=== PATIENT | male | born 1975 | race African-American/Black ===

== ENCOUNTER 2016-08-01 22:03 | Emergency (ER) | payer MEDICAID ==
[2016-08-02] MEDS ORDERED: NORMAL SALINE 1000 ML 1,000 ML IV ONE (00:03)
[2016-08-02] MEDS ORDERED: ONDANSETRON HCL INJ/PF 4 MG/2 ML SDV IV ONE (00:03)
[2016-08-02] MEDS ORDERED: ONDANSETRON ODT 4 MG TAB (6 TAB/DSPK) PO PRN (00:47)
--- NOTE | 2016-08-02 00:47 | ER Document Report ---
ED General - General Chief Complaint: Nausea/Vomiting/Diarrhea Stated Complaint: NAUSEA,VOMITING,DIARRHEA Cannot obtain history due to: Mentally challenged Notes: Patient is a 41-year-old male coming from a [facility] with concerns of several episodes of vomiting and diarrhea. Patient is nonverbal. He has not received anything to treat his symptoms prior to arrival. Apparently no prior history of similar symptoms in the past. No known sick contacts. History is otherwise limited secondary to patient's nonverbal status. TRAVEL OUTSIDE OF THE [place] IN LAST 30 DAYS: No - Related Data Allergies/Adverse Reactions: No Known Allergies Allergy (Verified 04/21/16 15:17) Past Medical History - General Information source: Legal Guardian Cannot obtain history due to: Mentally challenged - Social History Smoking Status: Never Smoker Frequency of alcohol use: None Drug Abuse: None Lives with: Other - care home Family History: Reviewed & Not Pertinent, Other - unable to obtain Patient has suicidal ideation: No Patient has homicidal ideation: No - Past Medical History Cardiac Medical History: Denies: Hx Coronary Artery Disease, Hx Heart Attack, Hx Hypertension Pulmonary Medical History: Denies: Hx Asthma, Hx Bronchitis, Hx COPD, Hx Pneumonia Neurological Medical History: Reports: Hx Seizures - EPLIEPSY. Denies: Hx Cerebrovascular Accident Renal/ Medical History: Denies: Hx Peritoneal Dialysis GI Medical History: Reports: Hx Endoscopy - g tube Musculoskeltal Medical History: Denies Hx Arthritis Past Surgical History: Reports: Hx Abdominal Surgery - Immunizations Immunizations up to date: Yes Hx Diphtheria, Pertussis, Tetanus Vaccination: Yes Review of Systems - Review of Systems -: Yes ROS unobtainable due to patient's medical condition Physical Exam - Vital signs Vitals: Temp Pulse Resp BP Pulse Ox 97.8 F 118 H 19 123/82 98 08/01/16 23:02 08/01/16 23:02 08/01/16 23:02 08/01/16 23:02 08/01/16 23:02 Interpretation: Tachycardic Notes: PHYSICAL EXAMINATION: GENERAL: Patient is laying in the position in no distress HEAD: Atraumatic, normocephalic. EYES: Pupils equal round and reactive to light, extraocular movements intact, sclera anicteric, conjunctiva are normal. ENT: nares patent, oropharynx clear without exudates. Moist mucous membranes. NECK: Normal range of motion, supple without lymphadenopathy LUNGS: Breath sounds clear to auscultation bilaterally and equal. No wheezes rales or rhonchi. HEART: Regular rate and rhythm without murmurs ABDOMEN: Soft, nontender, normoactive bowel sounds. No guarding, no rebound. No masses appreciated. EXTREMITIES: no pitting or edema. No cyanosis. NEUROLOGICAL: No focal neurological deficits. Moves all extremities spontaneously. PSYCH: Nonverbal SKIN: Warm, Dry, normal turgor, no rashes or lesions noted. Course - Re-evaluation Re-evalutation: 08/02/16 00:44 Patient presents with vomiting and diarrhea that have since resolved. He has no focal abdominal tenderness on exam although he is nonverbal. Vitals at the time my assessment are within normal limits without tachycardia or hypotension. His vomiting has resolved after administration of Zofran. Presentation is overall most consistent likely viral gastroenteritis. KUB completed as patient has a history of bowel obstructions in the past without evidence of this pathology. Patient has tolerated a sterile water 100 mL challenge through his G -tube without additional episodes of vomiting. Based on clinical history, vitals and exam I do not believe laboratories or imaging studies are indicated at this time. At this time will discharge with return precautions and follow- up recommendations. Verbal discharge instructions given a the bedside and opportunity for questions given. Medication warnings reviewed. Care provider is in agreement with this plan and has verbalized understanding of return precautions and the need for primary care follow-up in the next 24-72 hours. - Vital Signs Vital signs: Temp Pulse Resp BP Pulse Ox 99.4 F 98 20 121/83 96 08/02/16 00:52 08/02/16 00:52 08/02/16 00:52 08/02/16 00:52 08/02/16 00:52 Discharge - Discharge Clinical Impression: Vomiting and diarrhea Condition: Good Disposition: HOME, SELF-CARE Additional Instructions: Your symptoms are likely due to a viral illness and should resolve in the next several days. You can take mvey-ysi-rdtlmen loperamide also known as Imodium as needed for diarrhea per box instructions. Continue to stay hydrated with plenty of solution such as Gatorade or Pedialyte. You are being prescribed Zofran to take as needed for nausea and vomiting. Please return if you develop severe abdominal pain, pass out, become unable to tolerate any oral fluids for 12 more hours, or any other symptoms that are concerning to you. Referrals: CORINA CORDON MD [Primary Care Provider] - Follow up as needed
[2016-08-02 03:16] VITALS: BP 117/69
== END 2016-08-02 03:20 | disposition home or self-care (01) ==
LOC: ER 22:03
DX: R11.2 Nausea with vomiting, unspecified (principal); R19.7 Diarrhea, unspecified; Z87.19 Personal history of other diseases of the digestive system; Z93.1 Gastrostomy status
CPT/HCPCS: 74000; 99284

== ENCOUNTER 2016-09-18 16:40 | Emergency (ER) | payer MEDICAID ==
[2016-09-18] MEDS ORDERED: CEFTRIAXONE INJ 1000 MG VIAL IM ONE (19:00)
[2016-09-18] MEDS ORDERED: LIDOCAINE 1% INJ (10 MG/ML) 10 ML MDV INJ ONE (19:01)
--- NOTE | 2016-09-18 19:01 | ER Document Report ---
ED Respiratory Problem - General Mode of Arrival: Ambulatory Information source: Patient TRAVEL OUTSIDE OF THE [place] IN LAST 30 DAYS: No - HPI Patient complains to provider of: Cough Similar symptoms previously: Yes Recently seen / treated by doctor: Yes - General Chief Complaint: Breathing Difficulty Stated Complaint: PHYSICIAN REFERRED/RESPIRATORY ISSUE Time Seen by Provider: 09/18/16 18:53 Notes: Patient is a 85-year-old male with mental retardation and epilepsy that presents to the emergency department today with complaints of "possible pneumonia". Patient came with outpatient x-ray report along with outpatient labs in hand. Patient was seen in an urgent care and diagnosed with "possible pneumonia". Patient was sent here according to caregivers because of "possible dehydration" however on labs patient does not appear to be dehydrated. (EYAL TEE) - Related Data Allergies/Adverse Reactions: No Known Allergies Allergy (Verified 09/18/16 16:55) Past Medical History - General Information source: Outside Facility Records - health care law specialist - Social History Smoking Status: Never Smoker Cigarette use (# per day): No Frequency of alcohol use: None Drug Abuse: None Lives with: Family Family History: Reviewed & Not Pertinent, Other - unable to obtain Patient has suicidal ideation: No Patient has homicidal ideation: No Neurological Medical History: Reports: Hx Seizures - EPLIEPSY GI Medical History: Reports: Hx Endoscopy - g tube Past Surgical History: Reports: Hx Abdominal Surgery - Immunizations Immunizations up to date: Yes Hx Diphtheria, Pertussis, Tetanus Vaccination: Yes Review of Systems - Review of Systems Constitutional: See HPI, Fever - subjective EENT: No symptoms reported Cardiovascular: No symptoms reported Respiratory: See HPI, Cough Gastrointestinal: No symptoms reported Genitourinary: No symptoms reported Male Genitourinary: No symptoms reported Musculoskeletal: No symptoms reported Skin: No symptoms reported Hematologic/Lymphatic: No symptoms reported Neurological/Psychological: No symptoms reported -: Yes All other systems reviewed and negative - Review of Systems Notes: given by caregiver at bedside (EYAL TEE) Physical Exam - Vital signs Vitals: Temp Pulse Resp BP Pulse Ox 97.9 F 99 20 143/82 H 98 09/18/16 16:57 09/18/16 16:57 09/18/16 16:57 09/18/16 16:57 09/18/16 16:57 - Notes Notes: Physical Exam: General: Alert, wearing helmet which is normal for the patient, in wheelchair, interacts appropriately for mental baseline. HEENT: Normocephalic. Atraumatic. PERRL. Extraocular movements intact. Oropharynx clear. Wearing helmet. Neck: Supple. Respiratory: No respiratory distress. Clear and equal breath sounds bilaterally. 99% oxygen saturation on room air. Abdominal: Normal Inspection. No distension. Extremities: Moves all four extremities. Neurological: Cognition and speech as baseline according to caregivers. Psychological: Unable to assess secondary to MR Skin: Warm. Dry. Normal color. (EYAL TEE) Course - Re-evaluation Re-evalutation: 09/18/16 19:04 Patient presents to the emergency department by caregiver. She states he has been coughing recently may have had a fever earlier this morning was sent to the urgent care. We have complete records from the urgent care where they saw him around 1:00 this afternoon. X-ray showed a questionable right upper lobe pneumonia. Blood work showing a white blood cell count of 11.5 with an H&H that were stable. On ED arrival he is awake alert no respiratory distress with a pulse ox of 98% on room air afebrile at 97 9 normotensive. He is at his baseline mental status no nuchal rigidity no altered mental status according to caregiver who sees him on a daily basis he is interactive smiling and actually talked with me a couple times. His lungs are clear no difficulty breathing abdomen is soft PEG tube is in place no lower extremity edema calf tenderness or swelling. At this time the patient had laboratory evaluation just at 1:00 his vital signs are stable questionable pneumonia going him a shot of Rocephin him on Augmentin for primary care physician in 2-3 days no emergent need for anything additional at this point unless something changes does not require inpatient either. And discussed reasons for ED return sooner (CLAUDIA BERRY) - Vital Signs Vital signs: Temp Pulse Resp BP Pulse Ox 97.9 F 89 18 131/96 H 98 09/18/16 16:57 09/18/16 19:31 09/18/16 19:31 09/18/16 19:31 09/18/16 19:31 Discharge - Discharge Clinical Impression: Pneumonia Condition: Stable Disposition: HOME, SELF-CARE Additional Instructions: Pneumonia Your examination indicates that you have pneumonia. This is an infection of the lung tissue, usually caused by bacteria or a virus. Symptoms include cough, fever, shaking chills, chest pain, shortness of breath, and coughing up bloody sputum. Treatment for bacterial pneumonia includes rest, antibiotics for 10 to 14 days, increasing your clear liquid intake, a cool mist humidifier at your bedside, and fever medication. Often, a repeat chest X-ray is performed in a few weeks--even if you feel better--to ascertain whether the infection has completely resolved and no underlying lung problem is present. You should call the physician if you develop persistent vomiting, high fever that does not respond to fever medication, increasing shortness of breath , confusion, or lethargy. Also, failure to improve within two to three days is an indication for re-examination. Follow-up with your primary care physician on Wednesday return for increasing worsening or new symptoms or any additional concerns Prescriptions: Amox Tr/Potassium Clavulanate [Augmentin 875-125 Tablet] 1 tab PO BID 10 Days Referrals: OMA BAUTISTA PA-C [Primary Care Provider] - Follow up as needed Meenaibe Attestation: 09/18/16 19:13 I personally performed the services described in the documentation, reviewed and edited the documentation which was dictated to my scribe in my presence, and it accurately records my words and actions. (CLAUDIA BERRY) Scribe Documentation - Scribe Written by Jacky:: Jacky Fenton, 09/18/16 [id number] acting as scribe for :: Alberto
[2016-09-18] MEDS ORDERED: LIDOCAINE 1% INJ-PF (10 MG/ML) 30 ML SDV ONE (19:12)
[2016-09-18 20:03] VITALS: BP 131/96
== END 2016-09-18 19:31 | disposition home or self-care (01) ==
LOC: ER 16:40
DX: J18.1 Lobar pneumonia, unspecified organism (principal); R06.00 Dyspnea, unspecified; G40.909 Epilepsy, unspecified, not intractable, without status epilepticus; F79 Unspecified intellectual disabilities; Z93.1 Gastrostomy status
CPT/HCPCS: 99284; 96372; J0696

== ENCOUNTER → 2016-09-18 | Outpatient (CLI) | payer MEDICAID ==
[2016-09-18 14:49] LABS: ABSOLUTE LYMPHOCYTES (AUTO) 1.1 10^3/uL (0.5-4.7); ABSOLUTE MONOCYTES (AUTO) 0.6 10^3/uL (0.1-1.4); ABSOLUTE NEUT (AUTO) 9.8 10^3/uL (1.7-8.2); BASOPHILS % (AUTO) 0.2 % (0-2); HEMATOCRIT 39.5 % (37.9-51.0); HEMOGLOBIN 13.5 g/dL (13.5-17.0); LYMPHOCYTES % (AUTO) 9.5 % (13-45); MEAN CORPUSCULAR HEMOGLOBIN 28.3 pg (27.0-33.4); MEAN CORPUSCULAR HGB CONC 34.2 g/dL (32.0-36.0); MEAN CORPUSCULAR VOLUME 83 fl (80-97); MONOCYTES % (AUTO) 5.3 % (3-13); RED BLOOD COUNT 4.76 10^6/uL (4.35-5.55); RED CELL DISTRIBUTION WIDTH 14.6 % (11.5-14.0); WHITE BLOOD COUNT 11.5 10^3/uL (4.0-10.5)
[2016-09-18 15:20] LABS: ANION GAP 12 (5-19); BLOOD UREA NITROGEN 12 mg/dL (7-20); CALCIUM 9.4 mg/dL (8.4-10.2); CARBON DIOXIDE 28 mmol/L (22-30); CHLORIDE 103 mmol/L (98-107); GLUCOSE 99 mg/dL (75-110); SODIUM 143.3 mmol/L (137-145)
== END ==
LOC: OD 13:05
PROVIDERS: ATTEND Emergency Medicine
DX: R50.9 Fever, unspecified (principal); F72 Severe intellectual disabilities; F84.0 Autistic disorder; G40.909 Epilepsy, unspecified, not intractable, without status epilepticus
CPT/HCPCS: 36415; 71020; 80048; 85025

== ENCOUNTER 2017-06-25 12:21 | Emergency (ER) | payer MEDICAID ==
[2017-06-25] MEDS ORDERED: LEVETIRACETAM 1500 MG/NACL-ISO 1,500 MG/100 ML RTUPB IV ONE (12:49)
--- NOTE | 2017-06-25 12:51 | ER Document Report ---
ED General - General Stated Complaint: POSSIBLE SEIZURE Time Seen by Provider: 06/25/17 12:24 Mode of Arrival: Ambulatory Information source: Patient TRAVEL OUTSIDE OF THE [place] IN LAST 30 DAYS: No - HPI Notes: 41-year-old male with a history of epilepsy, MR and g tube presents via EMS for complaints of multiple seizures in a cluster that started this morning as well as vomiting after receiving his medication through his G-tube today patient has not had a seizure in the emergency room, no Diastat was given. Patient does take Keppra and Lamictal through his G-tube. home health aid states she gave the medications this morning and patient vomited up the medication. No change in his recent seizure medications. Patient's seizure medications are managed by [facility]. No new trauma. No change in medicine, food or travel. Denies fevers, chills, chest pain,palpitations, shortness of breath, dyspnea, nausea, vomiting, diarrhea, abdominal pain, hematuria,blurred vision, double vision, loss of vision, speech changes, LH, dizziness, syncope, headaches, wheezing, ST, URI, neck pain, weakness, bowel or bladder dysfunction, saddle anesthesia, numbness or tingling in bilateral upper or lower extremities equally, muscle paralysis, weakness in bilateral upper or lower extremities equally or rash. Denies IV drug use. - Related Data Allergies/Adverse Reactions: No Known Allergies Allergy (Verified 09/18/16 16:55) Past Medical History - General Information source: Legal Guardian, COUNT [facility]CLUDES [facility] Records, Outside Facility Records Cannot obtain history due to: Mentally challenged - Social History Smoking Status: Never Smoker Family History: Reviewed & Not Pertinent, Other - unable to obtain - Past Medical History Cardiac Medical History: Denies: Hx Coronary Artery Disease, Hx Heart Attack, Hx Hypertension Pulmonary Medical History: Denies: Hx Asthma, Hx Bronchitis, Hx COPD, Hx Pneumonia Neurological Medical History: Reports: Hx Seizures - EPLIEPSY. Denies: Hx Cerebrovascular Accident Renal/ Medical History: Denies: Hx Peritoneal Dialysis GI Medical History: Reports: Hx Endoscopy - g tube Musculoskeltal Medical History: Denies Hx Arthritis Past Surgical History: Reports: Hx Abdominal Surgery - Immunizations Immunizations up to date: Yes Hx Diphtheria, Pertussis, Tetanus Vaccination: Yes Review of Systems - Review of Systems Constitutional: No symptoms reported EENT: No symptoms reported Cardiovascular: No symptoms reported Respiratory: No symptoms reported Gastrointestinal: No symptoms reported Genitourinary: See HPI Male Genitourinary: No symptoms reported Musculoskeletal: No symptoms reported Skin: No symptoms reported Hematologic/Lymphatic: No symptoms reported Neurological/Psychological: See HPI Physical Exam - Vital signs Vitals: Resp 17 06/25/17 12:29 - Notes Notes: PHYSICAL EXAMINATION: GENERAL: Well-appearing, well-nourished and in no acute distress. HEAD: Atraumatic, normocephalic. EYES: Pupils equal round and reactive to light, extraocular movements intact, sclera anicteric, conjunctiva are normal. ENT: Nares patent, oropharynx clear without exudates. Moist mucous membranes. NECK: Normal range of motion, supple without lymphadenopathy LUNGS: Breath sounds clear to auscultation bilaterally and equal. No wheezes rales or rhonchi. HEART: Regular rate and rhythm without murmurs ABDOMEN: Soft, nontender, nondistended abdomen. No guarding, no rebound. No masses appreciated. Musculoskeletal: Normal range of motion, no pitting or edema. No cyanosis. NEUROLOGICAL: alert, no slurred speech, does not have spontaneous meaningful speech on his own, no facial droop, cranial nerves II through XII grossly intact , biceps and patellar DTRs +2 bilaterally. PERRLA, PSYCH: Normal mood, normal affect. SKIN: Warm, Dry, normal turgor, no rashes or lesions noted. Course - Re-evaluation Re-evalutation: 06/25/17 15:57 Discussed the results of the labs/radiology as well as the diagnosis at great length. Pediatric enzymes negative. CBC unremarkable, CMP unremarkable. patient's urine tox shows that he is positive for benzodiazepines which matches his medications that he takes. Urinalysis showed ketones, patient given 1 L of IV fluids. Keppra level is a send out. pt loaded with 1500 of Keppra IV. Up with neurologist within 3 days as well as primary care provider. If symptoms become worse return to the emergency room as soon as possible. Breath level was a send out, unable to obtain today. Advised to maintain same doses of seizure medications. Pt has not vomited or had any seizures since he came to the emergency room at 1230 which was approximately 2 and half hours ago. Discussed the need to return to the ER for any new or worsening sx. All questions answered. caregiver comfortable with the decision to go home. After performing a Medical Screening Examination, I estimate there is LOW risk for ACUTE APPENDICITIS, BOWEL OBSTRUCTION, ACUTE CHOLECYSTITIS, PERFORATED DIVERTICULITIS, INCARCERATED HERNIA, PANCREATITIS, TESTICULAR TORSION or PERFORATED ULCER, thus I consider the discharge disposition reasonable. Also, there is no evidence or peritonitis, sepsis, or toxicity. I have reevaluated this patient multiple times and no significant life threatening changes are noted. The patient and I have discussed the diagnosis and risks, and we agree with discharging home with close follow-up with the understanding that symptoms and presentations can change. We also discussed returning to the Emergency Department immediately if new or worsening symptoms occur. We have discussed the symptoms which are most concerning (e.g., bloody stool, fever, changing or worsening pain, intractable vomiting - standard verbal up date) that necessitate immediate return. - Vital Signs Vital signs: Temp Pulse Resp BP Pulse Ox 99.2 F 18 129/90 H 94 06/25/17 13:14 06/25/17 13:01 06/25/17 13:00 06/25/17 13:01 - Laboratory Result Diagrams: 06/25/17 12:45 06/25/17 12:45 Laboratory results interpreted by me: 06/25/17 06/25/17 12:45 13:30 RDW 14.3 H Seg Neutrophils % 83.0 H Lymphocytes % 6.7 L Urine Ketones TRACE H - EKG Interpretation by Me Rate: Tachycardia Rhythm: NSR When compared to previous EKG there are: No significant change Discharge - Discharge Clinical Impression: Seizures Condition: Good Disposition: HOME, SELF-CARE Instructions: Seizure, Known Epileptic ([facility]) Additional Instructions: Seizure You have had a seizure. Seizure disorders (epilepsy) of one sort or another affect about one out of 50 people. The seizure occurs because of abnormal electrical activity in the brain. Seizures may be due to drugs and alcohol, strokes, brain injury, or infection. In the most common form of epilepsy, no cause can be found. You will require further evaluation to determine the cause of your seizure, and to determine whether anti-seizure medication is required. This follow-up testing is important, so please call us if you encounter problems with scheduling of tests or appointments. YOU SHOULD NOT DRIVE until released to do so by your physician. The law requires that seizures be reported to the local company hazmat driver's license bureau--a seizure while driving could be catastrophic. Call the doctor if seizures recur, or if you develop new symptoms such as fever, severe headache, stiff neck, confusion or increasing sleepiness, weakness or numbness, or visual problems. Referrals: OMA BAUTISTA PA-C [Primary Care Provider] - Follow up in 3-5 days SYDNIE LEMUS MD [NO LOCAL MD] - Follow up in 3-5 days
[2017-06-25 13:14] VITALS: BP 129/90
--- NOTE | 2017-06-25 13:24 | EKG REPORT ---
SEVERITY:- ABNORMAL ECG - SINUS TACHYCARDIA BORDERLINE INFERIOR Q WAVES BORDERLINE T ABNORMALITIES, INFERIOR LEADS EARLY PRECORDIAL TRANSITION, LEAD PLACEMENT, VS OLD TRUE POST [place] : Confirmed by: Aubrey York MD 25-Jun-2017 13:24:24
[2017-06-25 13:27] LABS: ABSOLUTE LYMPHOCYTES (AUTO) 0.5 10^3/uL (0.5-4.7); ABSOLUTE MONOCYTES (AUTO) 0.7 10^3/uL (0.1-1.4); BASOPHILS % (AUTO) 0.1 % (0-2); EOSINOPHILS % (AUTO) 0.4 % (0-6); HEMATOCRIT 42.2 % (37.9-51.0); HEMOGLOBIN 14.7 g/dL (13.5-17.0); LYMPHOCYTES % (AUTO) 6.7 % (13-45); MEAN CORPUSCULAR HGB CONC 34.8 g/dL (32.0-36.0); MEAN CORPUSCULAR VOLUME 83 fl (80-97); MONOCYTES % (AUTO) 9.8 % (3-13); PLATELET COUNT 192 10^3/uL (150-450); RED BLOOD COUNT 5.07 10^6/uL (4.35-5.55); RED CELL DISTRIBUTION WIDTH 14.3 % (11.5-14.0); TOTAL CELLS COUNTED % (AUTO) 100 %; WHITE BLOOD COUNT 7.3 10^3/uL (4.0-10.5)
[2017-06-25 13:44] LABS: A TYPE INFLUENZA AG NEGATIVE (NEGATIVE); B INFLUENZA AG NEGATIVE (NEGATIVE)
[2017-06-25 13:48] LABS: ALANINE AMINOTRANSFERASE 31 U/L (21-72); ALBUMIN 4.6 g/dL (3.5-5.0); ALKALINE PHOSPHATASE 86 U/L (38-126); ANION GAP 14 (5-19); ASPARTATE AMINO TRANSFERASE 21 U/L (17-59); BILIRUBIN,DIRECT 0.2 mg/dL (0.0-0.4); BILIRUBIN,TOTAL 0.5 mg/dL (0.2-1.3); BLOOD UREA NITROGEN 19 mg/dL (7-20); CALCIUM 9.5 mg/dL (8.4-10.2); CARBON DIOXIDE 27 mmol/L (22-30); CHLORIDE 103 mmol/L (98-107); CREATINE KINASE 69 U/L (55-170); GLUCOSE 106 mg/dL (75-110); POTASSIUM 3.9 mmol/L (3.6-5.0); SODIUM 143.8 mmol/L (137-145); TOTAL PROTEIN 7.1 g/dL (6.3-8.2)
[2017-06-25 13:58] LABS: APPEARANCE,URINE CLEAR; BILIRUBIN,URINE NEGATIVE (NEGATIVE); COLOR,URINE YELLOW; GLUCOSE, URINE NEGATIVE (NEGATIVE); KETONES,URINE TRACE mg/dL (NEGATIVE); LEUKOCYTE ESTERASE,URINE NEGATIVE (NEGATIVE); NITRITE,URINE NEGATIVE (NEGATIVE); PROTEIN,URINE NEGATIVE (NEGATIVE); URINE SPECIFIC GRAVITY 1.026; UROBILINOGEN,URINE NEGATIVE mg/dL (<2.0)
[2017-06-25] MEDS ORDERED: NORMAL SALINE 1000 ML 1,000 ML IV PRN (14:47)
[2017-06-25 15:19] LABS: URINE AMPHETAMINES SCREEN NEGATIVE; URINE BARBITURATES SCREEN NEGATIVE; URINE BENZODIAZEPINES SCREEN UNCONFIRMED POSITIVE; URINE COCAINE SCREEN NEGATIVE; URINE MARIJUANA (THC) SCREEN NEGATIVE; URINE METHADONE SCREEN NEGATIVE; URINE PHENCYCLIDINE SCREEN NEGATIVE
== END 2017-06-25 17:30 | disposition home or self-care (01) ==
LOC: ER 12:21
DX: G40.909 Epilepsy, unspecified, not intractable, without status epilepticus (principal); F79 Unspecified intellectual disabilities; Z93.1 Gastrostomy status
CPT/HCPCS: 93005; 99284; 96361; 51701; 96374; 36415; 87086; 80177; 82550; 83605; 85025; 80053; 80175; 81001; 84484; 80307; 87804; 93010; J7030; J1953

== ENCOUNTER → 2018-03-10 | Outpatient (CLI) | payer MEDICAID ==
[2018-03-10 10:10] LABS: HEMATOCRIT 40.3 % (37.9-51.0); HEMOGLOBIN 13.7 g/dL (13.5-17.0); RED BLOOD COUNT 4.77 10^6/uL (4.35-5.55); WHITE BLOOD COUNT 4.3 10^3/uL (4.0-10.5)
[2018-03-10 10:11] LABS: ABSOLUTE LYMPHOCYTES (AUTO) 1.8 10^3/uL (0.5-4.7); ABSOLUTE MONOCYTES (AUTO) 0.3 10^3/uL (0.1-1.4); ABSOLUTE NEUT (AUTO) 2.2 10^3/uL (1.7-8.2); BASOPHILS % (AUTO) 0.6 % (0-2); EOSINOPHILS % (AUTO) 0.4 % (0-6); LYMPHOCYTES % (AUTO) 41.1 % (13-45); MEAN CORPUSCULAR HEMOGLOBIN 28.7 pg (27.0-33.4); MEAN CORPUSCULAR VOLUME 84 fl (80-97); MONOCYTES % (AUTO) 7.4 % (3-13); PLATELET COUNT 233 10^3/uL (150-450); RED CELL DISTRIBUTION WIDTH 14.2 % (11.5-14.0); SEGMENTED NEUTROPHILS % (AUTO) 50.5 % (42-78); TOTAL CELLS COUNTED % (AUTO) 100 %
[2018-03-10 10:19] LABS: ALANINE AMINOTRANSFERASE 18 U/L (21-72); ALBUMIN 4.4 g/dL (3.5-5.0); ALKALINE PHOSPHATASE 93 U/L (38-126); ANION GAP 9 (5-19); ASPARTATE AMINO TRANSFERASE 20 U/L (17-59); BILIRUBIN,DIRECT 0.2 mg/dL (0.0-0.4); BILIRUBIN,TOTAL 0.5 mg/dL (0.2-1.3); BLOOD UREA NITROGEN 12 mg/dL (7-20); CALCIUM 9.8 mg/dL (8.4-10.2); CARBON DIOXIDE 31 mmol/L (22-30); CHLORIDE 102 mmol/L (98-107); CHOLESTEROL 173.65 mg/dL (0-200); DIRECT LDL 93 mg/dL (<100); GLUCOSE 91 mg/dL (75-110); POTASSIUM 4.5 mmol/L (3.6-5.0); SODIUM 141.5 mmol/L (137-145); TOTAL PROTEIN 7.4 g/dL (6.3-8.2); TRIGLYCERIDES 108 mg/dL (<150)
[2018-03-10 10:24] LABS: FREE T4 (FREE THYROXINE) 0.61 ng/dL (0.78-2.19)
[2018-03-10 10:38] LABS: THYROID STIMULATING HORMONE 1.16 uIU/mL (0.47-4.68)
== END ==
LOC: OD 09:04
PROVIDERS: ATTEND Nurse Practitioner Psychiatric/Mental Health
DX: Z79.899 Other long term (current) drug therapy (principal); F63.81 Intermittent explosive disorder
CPT/HCPCS: 36415; 80053; 80061; 83036; 84439; 84443; 85025

== ENCOUNTER → 2018-06-07 | Outpatient (CLI) | payer MEDICAID ==
--- NOTE | 2018-06-07 10:02 | RADIOLOGY REPORT (SQ) ---
EXAM DESCRIPTION: CHEST PA/LATERAL COMPLETED DATE/TIME: 06/07/2018 9:35 am REASON FOR STUDY: MILD INTERMITTENT REACTIVE AIRWAY DISEASE COMPARISON: 01/26/2015 EXAM PARAMETERS: NUMBER OF VIEWS: two views TECHNIQUE: Digital Frontal and Lateral radiographic views of the chest acquired. RADIATION DOSE: NA LIMITATIONS: none FINDINGS: LUNGS AND PLEURA: No opacities, masses or pneumothorax. No pleural effusion. MEDIASTINUM AND HILAR STRUCTURES: No masses or contour abnormalities. HEART AND VASCULAR STRUCTURES: Heart normal size. No evidence for failure. BONES: No acute findings. HARDWARE: Unchanged catheter tubing overlying right neck and chest with tip overlying right atrium. Surgical clips overlie right upper quadrant. OTHER: No other significant finding. IMPRESSION: No evidence of acute cardiopulmonary process. TECHNICAL DOCUMENTATION: JOB ID: [id number] [employer]- All Rights Reserved Reading location - IP/workstation name: [email or web address]
== END ==
LOC: OD 09:20
PROVIDERS: ATTEND Physician Assistant
DX: J45.21 Mild intermittent asthma with (acute) exacerbation (principal)
CPT/HCPCS: 71046

== ENCOUNTER 2018-09-27 11:29 | Emergency (ER) | payer MEDICAID ==
[2018-09-27 11:39] VITALS: BP 130/83
--- NOTE | 2018-09-27 12:03 | ER Document Report ---
ED Medical Screen (RME) - General Chief Complaint: Skin Problem Stated Complaint: G TUBE ISSUES Time Seen by Provider: 09/27/18 11:55 Primary Care Provider: OMA BAUTISTA PA-C [Primary Care Provider] - Follow up as needed Mode of Arrival: Wheelchair Information source: Outside Facility Records - Caregiver present from outside facility Notes: 43-year-old male presented to ED for possible infection to the PEG tube site. He also has a distended abdomen with no bowel movement in several days. Caregiver states that it is been red and draining around the PEG tube site for several days has not had any fevers nausea or vomiting. He does have a history of autistic disorder,I/DD seizure disorder and Tuberous sclerosis. I have greeted and performed a rapid initial assessment of this patient. A comprehensive ED assessment and evaluation of the patient, analysis of test results and completion of medical decision making process will be conducted by an additional ED providers. Leydi TRAVEL OUTSIDE OF THE [place] IN LAST 30 DAYS: No - Related Data Allergies/Adverse Reactions: No Known Allergies Allergy (Verified 09/27/18 11:32) Past Medical History - Past Medical History Cardiac Medical History: Denies: Hx Coronary Artery Disease, Hx Heart Attack, Hx Hypertension Pulmonary Medical History: Denies: Hx Asthma, Hx Bronchitis, Hx COPD, Hx Pneumonia Neurological Medical History: Reports: Hx Seizures - EPLIEPSY. Denies: Hx Cerebrovascular Accident Renal/ Medical History: Denies: Hx Peritoneal Dialysis GI Medical History: Reports: Hx Endoscopy - g tube Musculoskeltal Medical History: Denies Hx Arthritis Past Surgical History: Reports: Hx Abdominal Surgery - Immunizations Immunizations up to date: Yes Hx Diphtheria, Pertussis, Tetanus Vaccination: Yes Physical Exam - Vital signs Vitals: Temp Pulse Resp BP Pulse Ox 97.6 F 86 18 130/83 H 98 09/27/18 11:39 09/27/18 11:39 09/27/18 11:39 09/27/18 11:39 09/27/18 11:39 Course - Vital Signs Vital signs: Temp Pulse Resp BP Pulse Ox 97.6 F 86 18 130/83 H 98 09/27/18 11:39 09/27/18 11:39 09/27/18 11:39 09/27/18 11:39 09/27/18 11:39 Doctor's Discharge - Discharge Referrals: OMA BAUTISTA PA-C [Primary Care Provider] - Follow up as needed
--- NOTE | 2018-09-27 12:44 | RADIOLOGY REPORT (SQ) ---
EXAM DESCRIPTION: ACUTE ABDOMEN SERIES COMPLETED DATE/TIME: 09/27/2018 12:34 pm REASON FOR STUDY: distended abdomen COMPARISON: 11/26/2013 NUMBER OF VIEWS: Three views. TECHNIQUE: Frontal chest, supine abdomen and upright/decubitus abdomen radiographic images acquired. LIMITATIONS: None. FINDINGS: CHEST: Lungs clear of infiltrates. FREE AIR: None. No abnormal gas collections. BOWEL GAS PATTERN: There is gaseous distention of the colon. CALCIFICATIONS: No suspicious calcifications. HARDWARE: None in the abdomen. SOFT TISSUES: No gross mass or suggestion of organomegaly. BONES: No acute fracture. No worrisome bone lesions. OTHER: No other significant finding. IMPRESSION: Gaseous distention of the colon. Rule out sigmoid volvulus. TECHNICAL DOCUMENTATION: JOB ID: [id number] [employer]- All Rights Reserved Reading location - IP/workstation name: [email or web address]
[2018-09-27 13:50] LABS: ABSOLUTE LYMPHOCYTES (AUTO) 1.6 10^3/uL (0.5-4.7); ABSOLUTE MONOCYTES (AUTO) 0.4 10^3/uL (0.1-1.4); ABSOLUTE NEUT (AUTO) 3.1 10^3/uL (1.7-8.2); BASOPHILS % (AUTO) 0.3 % (0-2); EOSINOPHILS % (AUTO) 0.6 % (0-6); HEMATOCRIT 40.4 % (37.9-51.0); HEMOGLOBIN 13.6 g/dL (13.5-17.0); LYMPHOCYTES % (AUTO) 30.9 % (13-45); MEAN CORPUSCULAR HEMOGLOBIN 28.3 pg (27.0-33.4); MEAN CORPUSCULAR HGB CONC 33.6 g/dL (32.0-36.0); MEAN CORPUSCULAR VOLUME 84 fl (80-97); MONOCYTES % (AUTO) 8.4 % (3-13); PLATELET COUNT 223 10^3/uL (150-450); RED BLOOD COUNT 4.79 10^6/uL (4.35-5.55); RED CELL DISTRIBUTION WIDTH 13.9 % (11.5-14.0); SEGMENTED NEUTROPHILS % (AUTO) 59.8 % (42-78); TOTAL CELLS COUNTED % (AUTO) 100 %; WHITE BLOOD COUNT 5.1 10^3/uL (4.0-10.5)
[2018-09-27 14:13] LABS: ANION GAP 10 (5-19); BLOOD UREA NITROGEN 11 mg/dL (7-20); CALCIUM 9.4 mg/dL (8.4-10.2); CARBON DIOXIDE 31 mmol/L (22-30); CHLORIDE 103 mmol/L (98-107); GLUCOSE 91 mg/dL (75-110); POTASSIUM 4.4 mmol/L (3.6-5.0); SODIUM 143.8 mmol/L (137-145)
--- NOTE | 2018-09-27 14:27 | ER Document Report ---
ED Skin Rash/Insect Bite/Abscs - General Chief Complaint: Skin Problem Stated Complaint: G TUBE ISSUES Time Seen by Provider: 09/27/18 11:55 Primary Care Provider: OMA PARKS PA-C [Primary Care Provider] - Follow up as needed Mode of Arrival: Wheelchair Information source: Outside Facility Records Notes: Patient was sent here with a central processing tech from and his care nursing care facility for some increased discharge around the G-tube site. Patient supposedly gets this changed every 6 months. It was changed 3 months ago. Patient has had no vomiting, fevers, or diarrhea. No obvious abdominal distention. The care provider at the bedside states that it looks at its baseline with a little indentation just inferior to the insertion site with some minimal surrounding erythema. Patient normally eats and drinks all meals. He only gets his medications to the site. They were able to give the medications this morning. TRAVEL OUTSIDE OF THE [place] IN LAST 30 DAYS: No - Related Data Allergies/Adverse Reactions: No Known Allergies Allergy (Verified 09/27/18 11:32) Past Medical History - General Information source: Outside Facility Records - Caregiver present from outside facility - Social History Smoking Status: Never Smoker Chew tobacco use (# tins/day): No Frequency of alcohol use: None Drug Abuse: None Family History: Reviewed & Not Pertinent, Other - unable to obtain Patient has suicidal ideation: No Patient has homicidal ideation: No - Past Medical History Cardiac Medical History: Denies: Hx Coronary Artery Disease, Hx Heart Attack, Hx Hypertension Pulmonary Medical History: Denies: Hx Asthma, Hx Bronchitis, Hx COPD, Hx Pneumonia Neurological Medical History: Reports: Hx Seizures - EPLIEPSY. Denies: Hx Cerebrovascular Accident Renal/ Medical History: Denies: Hx Peritoneal Dialysis GI Medical History: Reports: Hx Endoscopy - g tube Musculoskeletal Medical History: Denies Hx Arthritis Past Surgical History: Reports: Hx Abdominal Surgery - Immunizations Immunizations up to date: Yes Hx Diphtheria, Pertussis, Tetanus Vaccination: Yes Review of Systems - Review of Systems -: Yes ROS unobtainable due to patient's medical condition Physical Exam - Vital signs Vitals: Temp Pulse Resp BP Pulse Ox 97.6 F 86 18 130/83 H 98 09/27/18 11:39 09/27/18 11:39 09/27/18 11:39 09/27/18 11:39 09/27/18 11:39 Notes: Reviewed vital signs and nursing note as charted by RN. CONSTITUTIONAL: Alert very quiet and not responding to questions which is baseline for the patient ENT: Normal nose; no rhinorrhea; moist mucous membranes NECK: Supple without meningismus; non-tender; no cervical lymphadenopathy, no masses CARD: Regular rate and rhythm; no murmurs; symmetric distal pulses RESP: Normal chest excursion without splinting or tachypnea; breath sounds clear and equal bilaterally; no wheezes, no rhonchi, no rales ABD/GI: Normal bowel sounds; non-distended; soft, non-tender; patient has no obvious discharge from the insertion site. It is currently dry. Patient has very minimal surrounding erythema to the site BACK: The back appears normal and is non-tender to palpation EXT: Normal ROM in all joints; non-tender to palpation; no edema SKIN: See above Course - Re-evaluation Re-evalutation: The above history and physical examination, we will obtain a white blood cell count. We will also obtain a three-way x-ray of the abdomen. Patient has had no vomiting or fevers. According to the bedside care provider who takes care of the patient on multiple afternoons a week, the site looks around baseline. We will also attempt to make contact with the patient's primary care provider to see if they would like us to start the patient on some Keflex or just better G- tube cleaning precautions. 09/27/18 14:27 Labs as recorded. I have called and spoken to the primary care physician Dr. Oma parks. I have explained the history and physical. She states she would like me to start the patient on a 5-day course of 3 times a day Keflex to the G- tube with a liquid solution. She states she will have the patient followed up with in the next week. X-ray as recorded. I will order noncontrast CT scan. Low suspicion for volvulus. 09/27/18 16:14 CT scan as recorded. No change in exam. - Vital Signs Vital signs: Temp Pulse Resp BP Pulse Ox 97.6 F 86 18 130/83 H 98 09/27/18 11:39 09/27/18 11:39 09/27/18 11:39 09/27/18 11:39 09/27/18 11:39 - Laboratory Result Diagrams: 09/27/18 13:29 09/27/18 13:29 Laboratory results interpreted by me: 09/27/18 13:29 Carbon Dioxide 31 H Creatinine 1.26 H Discharge - Discharge Clinical Impression: Skin infection at gastrostomy tube site Condition: Good Disposition: HOME, SELF-CARE Additional Instructions: Come back immediately for any increased drainage, increased redness around the insertion site, fevers or vomiting, pain or discomfort, or any other acute problems. Please follow-up with the primary care physician. I have already called and spoken directly to her who states that she would like to see the patient next week. That physician should also follow-up with the nonspecific adrenal masses on CT scan. Is very important that you attempt to keep the insertion site very dry and clean with gauze surrounding to help avoid moisture as the moisture is what will cause the infection. Prescriptions: Cephalexin Monohydrate [Keflex 250 mg/5 ml Susp] 500 mg GT TID 5 Days ml Referrals: OMA PARKS PA-C [Primary Care Provider] - Follow up as needed
[2018-09-27] MEDS ORDERED: CEPHALEXIN 250 MG/5 ML SUSP 100 ML PO ONE (14:38)
--- NOTE | 2018-09-27 15:51 | RADIOLOGY REPORT (SQ) ---
EXAM DESCRIPTION: CT ABD/PELVIS NO ORAL OR IV COMPLETED DATE/TIME: 09/27/2018 2:59 pm REASON FOR STUDY: 3; xray showing distension COMPARISON: Radiographs 09/27/2018 TECHNIQUE: CT scan of the abdomen and pelvis performed without intravenous or oral contrast. Images reviewed with lung, soft tissue, and bone windows. Reconstructed coronal and sagittal MPR images revi ewed. All images stored on PACS. All CT scanners at this facility use dose modulation, iterative reconstruction, and/or weight based d osing when appropriate to reduce radiation dose to as low as reasonably achievable (ALARA). [facility]: Dose Right [facility]: CareDose [facility]: Dose Right [facility]: Teradose 4D [facility]: Smart sciencebite RADIATION DOSE: CT Rad equipment meets quality standard of care and radiation dose reduction techniq ues were employed. CTDIvol: 9.5 mGy. DLP: 564 mGy-cm.mGy. LIMITATIONS: None. FINDINGS: LOWER CHEST: No significant findings. No nodules or infiltrates. NON-CONTRASTED LIVER, SPLEEN, ADRENALS: Evaluation limited by lack of IV contrast. No identified sign ificant masses. PANCREAS: No masses. No peripancreatic inflammatory changes. GALLBLADDER: Surgically absent. RIGHT KIDNEY AND URETER: Multiple cortical lesions are seen they contain varying amounts of fat. The re are some cortical lesions that do not obviously contain fat. The largest measures about 3 cm. LEFT KIDNEY AND URETER: Multiple cortical lesions containing fat. There are some prominent lesions t hat do not as obviously contain fat. The 2 largest measure about 2 cm. AORTA AND RETROPERITONEUM: No aneurysm. No retroperitoneal masses or adenopathy. BOWEL AND PERITONEAL CAVITY: No obvious masses or inflammatory changes. No free fluid. APPENDIX: Normal. PELVIS, BLADDER, AND ABDOMINAL WALL:No abnormal masses. No free fluid. Bladder normal. BONES: There are areas of subcortical sclerosis in the femoral heads. OTHER: A ventriculoperitoneal shunt is present. IMPRESSION: 1. 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 These can be associated with tuberous scl erosis. Correlate clinically. 2. There are lesions in each kidney that do not obviously contain fat and renal cell neoplasm cannot entirely be excluded. Consider MRI without with contrast for further evaluation. 3. Cannot exclude avascular necrosis in either femoral head. COMMENT: Quality ID # [id number]: Final reports with documentation of one or more dose reduction techniques (e.g., Automated exposure control, adjustment of the mA and/or kV according to patient size, use of iterative reconstruction technique) TECHNICAL DOCUMENTATION: JOB ID: [id number] [employer]- All Rights Reserved Reading location - IP/workstation name: [email or web address]
== END 2018-09-27 16:49 | disposition home or self-care (01) ==
LOC: ER 11:29
DX: L08.89 Other specified local infections of the skin and subcutaneous tissue (principal); Z43.1 Encounter for attention to gastrostomy
CPT/HCPCS: 99284; 36415; 85025; 80048; 74022; 74176; J3490

== ENCOUNTER 2018-12-29 11:23 | Emergency (ER) | payer MEDICAID ==
--- NOTE | 2018-12-29 12:45 | ER Document Report ---
ED Medical Screen (RME) - General Chief Complaint: Seizure Stated Complaint: POSSIBLE SEIZURE Primary Care Provider: OMA BAUTISTA PA-C [Primary Care Provider] - Follow up as needed TRAVEL OUTSIDE OF THE [place] IN LAST 30 DAYS: No - HPI Notes: 12/29/18 12:41 Patient with history of seizure disorder and autism presents after having a seizure approximately 6-1/2 minutes. His caregiver gave Diastat when the seizure started. The protocol where he lives if he has a seizure greater than 5 minutes then 911 must be alerted. She also stated that his seizure was more severe than normal. He has been having a cough over the last couple of days as well as vomiting diarrhea over the last day. Otherwise no fevers. He is verbal at baseline I have greeted and performed a rapid initial assessment of this patient. A comprehensive ED assessment and evaluation of the patient, analysis of test results and completion of the medical decision making process will be conducted by additional ED providers. PHYSICAL EXAMINATION: GENERAL: Post ictal HEAD: Atraumatic, normocephalic. ENT: Nares patent LUNGS: No respiratory distress SKIN: Warm, Dry, normal turgor, no rashes or lesions noted. 12/29/18 12:44 - Related Data Allergies/Adverse Reactions: No Known Allergies Allergy (Verified 09/27/18 11:32) Past Medical History - Social History Chew tobacco use (# tins/day): No - Past Medical History Cardiac Medical History: Denies: Hx Coronary Artery Disease, Hx Heart Attack, Hx Hypertension Pulmonary Medical History: Denies: Hx Asthma, Hx Bronchitis, Hx COPD, Hx Pneumonia Neurological Medical History: Reports: Hx Seizures - EPLIEPSY. Denies: Hx Cerebrovascular Accident Renal/ Medical History: Denies: Hx Peritoneal Dialysis GI Medical History: Reports: Hx Endoscopy - g tube Musculoskeltal Medical History: Denies Hx Arthritis Past Surgical History: Reports: Hx Abdominal Surgery - Immunizations Immunizations up to date: Yes Hx Diphtheria, Pertussis, Tetanus Vaccination: Yes Physical Exam - Vital signs Vitals: Resp Pulse Ox 13 95 12/29/18 12:08 12/29/18 12:08 Course - Vital Signs Vital signs: Temp Pulse Resp BP Pulse Ox 16 112/72 95 12/29/18 12:25 12/29/18 12:25 12/29/18 12:25 - Laboratory Laboratory results interpreted by me: 12/29/18 11:55 POC Glucose 126 H Doctor's Discharge - Discharge Referrals: OMA BAUTISTA PA-C [Primary Care Provider] - Follow up as needed
[2018-12-29 13:53] LABS: ABSOLUTE LYMPHOCYTES (AUTO) 1.3 10^3/uL (0.5-4.7); ABSOLUTE MONOCYTES (AUTO) 0.5 10^3/uL (0.1-1.4); ABSOLUTE NEUT (AUTO) 5.4 10^3/uL (1.7-8.2); BASOPHILS % (AUTO) 0.3 % (0-2); EOSINOPHILS % (AUTO) 0.1 % (0-6); HEMATOCRIT 38.5 % (37.9-51.0); HEMOGLOBIN 13.1 g/dL (13.5-17.0); LYMPHOCYTES % (AUTO) 18.2 % (13-45); MEAN CORPUSCULAR HEMOGLOBIN 28.4 pg (27.0-33.4); MEAN CORPUSCULAR VOLUME 84 fl (80-97); MONOCYTES % (AUTO) 7.3 % (3-13); PLATELET COUNT 230 10^3/uL (150-450); RED CELL DISTRIBUTION WIDTH 13.7 % (11.5-14.0); SEGMENTED NEUTROPHILS % (AUTO) 74.1 % (42-78); TOTAL CELLS COUNTED % (AUTO) 100 %; WHITE BLOOD COUNT 7.3 10^3/uL (4.0-10.5)
[2018-12-29 14:12] LABS: ALBUMIN 4.1 g/dL (3.5-5.0); ALKALINE PHOSPHATASE 79 U/L (38-126); ANION GAP 10 (5-19); ASPARTATE AMINO TRANSFERASE 19 U/L (17-59); BILIRUBIN,DIRECT 0.4 mg/dL (0.0-0.4); BILIRUBIN,TOTAL 0.5 mg/dL (0.2-1.3); BLOOD UREA NITROGEN 14 mg/dL (7-20); CALCIUM 9.2 mg/dL (8.4-10.2); CARBON DIOXIDE 27 mmol/L (22-30); CHLORIDE 105 mmol/L (98-107); GLUCOSE 99 mg/dL (75-110); POTASSIUM 4.4 mmol/L (3.6-5.0); TOTAL PROTEIN 7.1 g/dL (6.3-8.2)
--- NOTE | 2018-12-29 14:32 | RADIOLOGY REPORT (SQ) ---
EXAM DESCRIPTION: CHEST SINGLE VIEW COMPLETED DATE/TIME: 12/29/2018 2:23 pm REASON FOR STUDY: r/o infection COMPARISON: 06/07/2018 EXAM PARAMETERS: NUMBER OF VIEWS: One view. TECHNIQUE: Single frontal radiographic view of the chest acquired. RADIATION DOSE: NA LIMITATIONS: None. FINDINGS: LUNGS AND PLEURA: No opacities, masses or pneumothorax. No pleural effusion. MEDIASTINUM AND HILAR STRUCTURES: No masses. Contour normal. HEART AND VASCULAR STRUCTURES: Cardiomegaly. No constantine pulmonary edema. BONES: No acute findings. HARDWARE: None in the chest. OTHER: No other significant finding. IMPRESSION: Cardiomegaly without pulmonary edema. TECHNICAL DOCUMENTATION: JOB ID: [id number] [employer]- All Rights Reserved Reading location - IP/workstation name: [email or web address]
--- NOTE | 2018-12-29 15:15 | ER Document Report ---
ED General - General Chief Complaint: Seizure Stated Complaint: POSSIBLE SEIZURE Time Seen by Provider: 12/29/18 13:36 Primary Care Provider: OMA BAUTISTA PA-C [Primary Care Provider] - Follow up as needed TRAVEL OUTSIDE OF THE [place] IN LAST 30 DAYS: No - HPI Notes: Patient is a 43 yo male that presents to the emergency department for chief complaint of seizure. patient has history of epilepsy and has 1 to 2 seizures per week. Patient lives at a [facility] and per protocol if he has a seizure lasting longer than 5 minutes he is to come into the emergency room. Patient had a typical seizure for himself today. It lasted about 6-1/2 minutes. Caregivers did administer 15 mg of Diastat which stopped the seizure. Patient has not had a seizure since this episode and did not occur any injuries during the seizure. He does see a neurologist Dr. Lai. Patient is currently back to baseline per caregiver. HPI is provided by caregiver, patient not currently speaking. Patient frequently does not speak to others and caregiver states that this is normal. He is speaking to her. Past Medical History: Seizure disorder Past Surgical History: Reviewed in chart Social History: Lives in a f[facility]. Denies alcohol and tobacco use Family History: Reviewed and noncontributory for presenting illness Allergies: Reviewed, see documented allergy list. REVIEW OF SYSTEMS: Unable to obtain because patient will not speak PHYSICAL EXAMINATION: Vital signs reviewed, nursing noted reviewed. GENERAL: Well-appearing, well-nourished and in no acute distress. HEAD: Atraumatic, normocephalic. EYES: Eyes appear normal, extraocular movements intact, sclera anicteric, co njunctiva are normal. ENT: nares patent, oropharynx clear without exudates. Moist mucous membranes. NECK: Normal range of motion, supple without lymphadenopathy LUNGS: Breath sounds clear to auscultation bilaterally and equal. No wheezes rales or rhonchi. HEART: Regular rate and rhythm without murmurs ABDOMEN: Soft, nontender, normoactive bowel sounds. No rebound, guarding, or rigidity. No masses appreciated. EXTREMITIES: Nontender, good range of motion, no pitting or edema. NEUROLOGICAL: No focal neurological deficits. Moves all extremities spontaneously Motor and sensory grossly intact on exam. PSYCH: Normal mood, normal affect. SKIN: Warm, Dry, normal turgor, no rashes or lesions noted on exposed skin - Related Data Allergies/Adverse Reactions: No Known Allergies Allergy (Verified 09/27/18 11:32) Past Medical History - Social History Smoking Status: Unknown if Ever Smoked Chew tobacco use (# tins/day): No Family History: Reviewed & Not Pertinent, Other - unable to obtain Patient has suicidal ideation: No Patient has homicidal ideation: No - Past Medical History Cardiac Medical History: Denies: Hx Coronary Artery Disease, Hx Heart Attack, Hx Hypertension Pulmonary Medical History: Denies: Hx Asthma, Hx Bronchitis, Hx COPD, Hx Pneumonia Neurological Medical History: Reports: Hx Seizures - EPLIEPSY. Denies: Hx Cerebrovascular Accident Renal/ Medical History: Denies: Hx Peritoneal Dialysis GI Medical History: Reports: Hx Endoscopy - g tube Musculoskeletal Medical History: Denies Hx Arthritis Past Surgical History: Reports: Hx Abdominal Surgery - Immunizations Immunizations up to date: Yes Hx Diphtheria, Pertussis, Tetanus Vaccination: Yes Physical Exam - Vital signs Vitals: Resp Pulse Ox 13 95 12/29/18 12:08 12/29/18 12:08 Course - Re-evaluation Re-evalutation: 12/29/18 15:15 Vitals reviewed. Nursing notes reviewed. Patient had work-up ordered in triage which is grossly unremarkable. He has not had a repeat seizure and has been in the emergency room for 3-1/2 hours. I will order Vimpat and Keppra levels which she has been compliant in taking. Patient will follow with his neurologist as an outpatient for reevaluation. I did personal financial counselor caregivers on return precautions. Patient stable and back to baseline at discharge. Laboratory 12/29/18 12/29/18 12/29/18 11:55 13:39 13:39 WBC 7.3 RBC 4.60 Hgb 13.1 L Hct 38.5 MCV 84 MCH 28.4 MCHC 34.0 RDW 13.7 Plt Count 230 Lymph % (Auto) 18.2 [place] % (Auto) 7.3 Eos % (Auto) 0.1 Baso % (Auto) 0.3 Absolute Neuts (auto) 5.4 Absolute Lymphs (auto) 1.3 Absolute Monos (auto) 0.5 Absolute Eos (auto) 0.0 Absolute Basos (auto) 0.0 Seg Neutrophils % 74.1 Sodium 142.1 Potassium 4.4 Chloride 105 Carbon Dioxide 27 Anion Gap 10 BUN 14 Creatinine 1.26 H Est GFR ( Amer) > 60 Est GFR (MDRD) Non-Af > 60 Glucose 99 POC Glucose 126 H Calcium 9.2 Total Bilirubin 0.5 Direct Bilirubin 0.4 Neonat Total Bilirubin Not Reportable Neonat Direct Bilirubin Not Reportable Neonat Indirect Bili Not Reportable AST 19 ALT 12 Alkaline Phosphatase 79 Total Protein 7.1 Albumin 4.1 Chest X-Ray 12/29/18 12:43 IMPRESSION: Cardiomegaly without pulmonary edema. - Vital Signs Vital signs: Temp Pulse Resp BP Pulse Ox 21 H 134/83 H 100 12/29/18 14:55 12/29/18 14:01 12/29/18 14:55 - Laboratory Result Diagrams: 12/29/18 13:39 12/29/18 13:39 Laboratory results interpreted by me: 12/29/18 12/29/18 12/29/18 11:55 13:39 13:39 Hgb 13.1 L Creatinine 1.26 H POC Glucose 126 H Discharge - Discharge Clinical Impression: Breakthrough seizure Condition: Stable Disposition: HOME, SELF-CARE Instructions: Seizure, Known Epileptic ([facility]) Additional Instructions: Please return to the emergency department if you have any worsening, or concern of your symptoms. Please return to the emergency department if you develop chest pain, difficulty breathing, severe abdominal pain, or ongoing vomiting. Please follow-up with your primary care physician in 2-3 days and any other recommended physicians. If prescribed, take all medications as directed. If you have any questions or concerns do not hesitate to return the emergency department for evaluation. Have patient follow with Dr. Lai this week for reevaluation. I did draw a Keppra and lamotrigine level in the emergency room today which can be requested by his neurologist on follow-up. Referrals: OMA BAUTISTA PA-C [Primary Care Provider] - Follow up in 3-5 days
[2018-12-29 16:22] VITALS: BP 127/85
== END 2018-12-29 16:09 | disposition home or self-care (01) ==
LOC: ER 11:23
DX: G40.909 Epilepsy, unspecified, not intractable, without status epilepticus (principal)
CPT/HCPCS: 36415; 71045; 80053; 80175; 80177; 82962; 85025; 99284

== ENCOUNTER 2018-12-29 18:34 | Emergency (ER) | payer MEDICAID ==
[2018-12-29] MEDS ORDERED: LEVETIRACETAM 1500 MG/NACL-ISO 1,500 MG/100 ML RTUPB IV ONE (18:40)
[2018-12-29] MEDS ORDERED: PROMETHAZINE HCL INJ 25 MG/1 ML VIAL IV ONE (19:01)
--- NOTE | 2018-12-29 19:01 | ER Document Report ---
ED General - General TRAVEL OUTSIDE OF THE [place] IN LAST 30 DAYS: No <ISSA TINSLEY A - Last Filed: 12/29/18 22:07> <GLORIA SEQUEIRA - Last Filed: 12/30/18 05:24> - General Stated Complaint: SEIZURES Time Seen by Provider: 12/29/18 18:35 Primary Care Provider: OMA BAUTISTA PA-C [Primary Care Provider] - Follow up tomorrow - HPI Notes: Patient is a 43-year-old male that presents to the emergency department for chief complaint of seizure. Patient was seen earlier in the emergency room for a seizure last about 6 minutes. Patient had been back at his intermediate facility for about an hour when he had another seizure. Repeat seizure lasted about 6 minutes, he did not receive Diastat for the seizure but did receive it for the earlier one. Patient's family is now at bedside, they were not present earlier when I evaluated this patient. They are providing the HPI. They state that patient has been unable to keep down his medications because of vomiting. They have been giving the medicines through the G-tube however as soon as they give him patient will vomit them back up. They feel this is why he is having these repeat seizures. Patient currently is at baseline per them. The seizure was witnessed by staff and he was sitting in a recliner chair and did not experience any injuries. Patient is not speaking with me which is his baseline but is speaking with family. Past Medical History: Epilepsy Past Surgical History: G-tube Social History: Lives in a intermediate, no history of drug alcohol or tobacco abuse Family History: Reviewed and noncontributory for presenting illness Allergies: Reviewed, see documented allergy list. REVIEW OF SYSTEMS: Unable to obtain because of patient's nonverbal status with me PHYSICAL EXAMINATION: Vital signs reviewed, nursing noted reviewed. GENERAL: Well-appearing, well-nourished and in no acute distress. HEAD: Atraumatic, normocephalic. EYES: Eyes appear normal, extraocular movements intact, sclera anicteric, conjunctiva are normal. ENT: nares patent, oropharynx clear without exudates. Moist mucous membranes. NECK: Normal range of motion, supple without lymphadenopathy LUNGS: Breath sounds clear to auscultation bilaterally and equal. No wheezes rales or rhonchi. HEART: Regular rate and rhythm without murmurs ABDOMEN: Soft, nontender, normoactive bowel sounds. No rebound, guarding, or rigidity. No masses appreciated. EXTREMITIES: Nontender, good range of motion, no pitting or edema. NEUROLOGICAL: No focal neurological deficits. Moves all extremities spontaneously Motor and sensory grossly intact on exam. PSYCH: Normal mood, normal affect. SKIN: Warm, Dry, normal turgor, no rashes or lesions noted on exposed skin (ISSA TINSLEY) - Related Data Allergies/Adverse Reactions: No Known Allergies Allergy (Verified 09/27/18 11:32) Past Medical History - Social History Family History: Reviewed & Not Pertinent, Other - unable to obtain - Past Medical History Cardiac Medical History: Denies: Hx Coronary Artery Disease, Hx Heart Attack, Hx Hypertension Pulmonary Medical History: Denies: Hx Asthma, Hx Bronchitis, Hx COPD, Hx Pneumonia Neurological Medical History: Reports: Hx Seizures - EPLIEPSY. Denies: Hx Cerebrovascular Accident Renal/ Medical History: Denies: Hx Peritoneal Dialysis GI Medical History: Reports: Hx Endoscopy - g tube Musculoskeletal Medical History: Denies Hx Arthritis Past Surgical History: Reports: Hx Abdominal Surgery - Immunizations Immunizations up to date: Yes Hx Diphtheria, Pertussis, Tetanus Vaccination: Yes <ISSA TINSLEY - Last Filed: 12/29/18 22:07> - Social History Smoking Status: Never Smoker Frequency of alcohol use: None Drug Abuse: None Lives with: [facility] Family History: None <GLORIA SEQUEIRA - Last Filed: 12/30/18 05:24> Physical Exam - Vital signs Vitals: Temp Pulse Resp BP Pulse Ox 97.5 F 75 16 119/85 97 12/29/18 18:43 12/29/18 18:43 12/29/18 18:43 12/29/18 18:43 12/29/18 18:43 Course <ISSA TINSLEY - Last Filed: 12/29/18 22:07> <GLORIA SEQUEIRA - Last Filed: 12/30/18 05:24> - Re-evaluation Re-evalutation: 12/29/18 19:00 Vitals reviewed. Nursing notes reviewed. Patient is well-appearing sitting up in bed and in no acute distress. He is communicating with family but does not want to speak with me which they report is normal for him. He appears clinically the same as when I evaluated him previously. Patient has now had two 6-minute seizures this afternoon. Family expresses that they feel he has not been getting his medications because of vomiting. Patient's lamotrigine and Keppra levels have not returned from blood draw earlier. He will be loaded with Keppra IV. Patient will also be given Phenergan for his nausea. Patient is now requiring further neurologic evaluation of his repeat seizures. His current neurologist is at [facility] however they are on deferment and not accepting patients at this time. Will discuss his care with neurology at [facility]. 12/29/18 19:30 I discussed patient's care with Dr. Perez who does not feel patient needs to be admitted at a facility with a neurologist since the reason he is having the breakthrough seizures is because of an inability to keep his oral medications down. He does request also giving an IV dose of Vimpat which will be provided. 12/29/18 21:46 Patient's care was discussed with Dr. Fox for admission at this facility for observation. He requested KUB be performed. This image shows nonspecific bowel gas without obstructive pattern. Patient's abdominal exam is soft with no focal tenderness and I do not clinically suspect bowel obstruction. After receiving Keppra, Vimpat, and Phenergan patient has been resting comfortably. He has not had any further seizure activity. I did flush his PEG with water and he has not had any emesis at this point. Patient was monitored for 3-1/2 hours on his last visit had a seizure shortly after returning home. He now has been loaded with his antiepileptics however he would like to be sure he is not going to have repeat seizures or continued emesis. Patient will remain in the emergency room to be monitored symptomatically. If he is able to tolerate input through his PEG tube without further vomiting and has no repeat seizures plan to discharge home with close outpatient neurology and PCP follow-up 12/29/18 22:07 Patient's care was signed out to Dr. Sequeira. Urinalysis pending. Plan to cont inue monitoring in the emergency room and possibly discharge home if UA negative and patient is able to tolerate intake through G-tube without recurrence of seizures. 12/29/18 22:07 (ISSA TINSLEY) 12/30/18 01:58 Urinalysis showed mild dehydration and the patient was rehydrated with 1 L of IV fluids over 2 hours. Vital signs remained stable. Patient was given his regular dose of clonidine and had already received IV Vimpat and Keppra. The patient had no vomiting and no recurrence of seizure. There was no evidence for urinary tract infection. 12/30/18 05:21 Patient had no further seizure activity and was at his mental status baseline after medications. Likewise patient's G-tube was flushed and he was given medications through the G-tube and had no further vomiting. We will write for Phenergan suppository as well as p.o. Zofran ODT for nausea and continue his regular antiseizure medications. Most likely the vomiting led to poor compliance with his antiepileptic regimen. (GLORIA SEQUEIRA) - Vital Signs Vital signs: Temp Pulse Resp BP Pulse Ox 97.8 F 72 18 116/75 97 12/29/18 23:57 12/29/18 23:57 12/29/18 23:57 12/29/18 23:57 12/29/18 23:57 - Laboratory Laboratory results interpreted by me: 12/29/18 23:35 Urine Protein 100 H Urine Ketones 20 H Urine Urobilinogen 2.0 H Urine Ascorbic Acid 40 H Discharge <ISSA TINSLEY - Last Filed: 12/29/18 22:07> <GLORIA SEQUEIRA - Last Filed: 12/30/18 05:24> - Discharge Clinical Impression: Breakthrough seizure, Dehydration Vomiting Qualifiers: Vomiting type: unspecified Vomiting Intractability: non-intractable Nausea presence: with nausea Qualified Code(s): R11.2 - Nausea with vomiting, unspecified Condition: Stable Disposition: HOME, SELF-CARE Instructions: Dehydration ([facility]), Seizure, Known Epileptic ([facility]), Vomiting ([facility]) Additional Instructions: Please return to the emergency department if you have any worsening, or concern of your symptoms. Please return to the emergency department if you develop chest pain, difficulty breathing, severe abdominal pain, or ongoing vomiting. Please follow-up with your primary care physician in 1 days and any other recommended physicians. If prescribed, take all medications as directed. If you have any questions or concerns do not hesitate to return the emergency department for evaluation. Have patient follow with his neurologist Dr. Lai in the next 3-5 days Prescriptions: Promethazine HCl [Phenergan 25 mg Supp.rect] 25 mg LA Q4HP PRN #12 supp.rect PRN Reason: vomiting Ondansetron [Zofran Odt 4 mg Tablet] 1 tab PO Q8HP PRN #10 tab.rapdis PRN Reason: Referrals: OMA BAUTISTA PA-C [Primary Care Provider] - Follow up tomorrow
[2018-12-29] MEDS ORDERED: LACOSAMIDE INJ/PF 200 MG/20 ML SDV IV ONE (19:27)
--- NOTE | 2018-12-29 21:20 | RADIOLOGY REPORT (SQ) ---
EXAM DESCRIPTION: RadLex: XR ABDOMEN 1 VIEW (KUB) CLINICAL HISTORY: 43 years Male, vomiting COMPARISON: 08/02/2016 FINDINGS: There is scattered gas in the colon with minimal distention. Scattered gas is also seen in several small bowel segments, without distention. No pneumatosis. A catheter is again noted projecting over the central abdomen, tip in the left lower quadrant. There is also a metallic foreign body projecting in the right lower quadrant, as on prior exam. No suspicious calcifications. IMPRESSION: 1. Nonspecific bowel gas pattern, with increased bowel gas, but no significant bowel distention.
[2018-12-30 00:03] LABS: AMORPHOUS SEDIMENT,URINE TRACE /HPF; APPEARANCE,URINE SLIGHTLY-CLOUDY; BILIRUBIN,URINE NEGATIVE (NEGATIVE); COLOR,URINE YELLOW; GLUCOSE, URINE NEGATIVE (NEGATIVE); KETONES,URINE 20 mg/dL (NEGATIVE); LEUKOCYTE ESTERASE,URINE NEGATIVE (NEGATIVE); NITRITE,URINE NEGATIVE (NEGATIVE); PROTEIN,URINE 100 mg/dL (NEGATIVE); URINE SPECIFIC GRAVITY 1.024
[2018-12-30] MEDS ORDERED: NORMAL SALINE 1000 ML 1,000 ML IV ONE (00:26)
[2018-12-30] MEDS ORDERED: LORAZEPAM INJ 2 MG/1 ML VIAL IV ONE (00:26)
[2018-12-30] MEDS ORDERED: CLONIDINE HCL 0.1 MG TABLET PEG ONE (00:27)
[2018-12-30] MEDS ORDERED: TRAZODONE HCL 50 MG TABLET PEG ONE (00:28)
[2018-12-30 09:06] VITALS: BP 110/76
== END 2018-12-30 09:23 | disposition home or self-care (01) ==
LOC: ER 18:34
DX: G40.909 Epilepsy, unspecified, not intractable, without status epilepticus (principal); E86.0 Dehydration; R11.2 Nausea with vomiting, unspecified; Z93.1 Gastrostomy status
CPT/HCPCS: 99284; 96361; 96375; 96365; 96367; 81001; 74018; J3490 ×2; J2060; J2550; J7030; C9254; J1953

== ENCOUNTER → 2019-01-27 | Outpatient (CLI) | payer MEDICAID ==
--- NOTE | 2019-01-27 15:32 | RADIOLOGY REPORT (SQ) ---
EXAM DESCRIPTION: UPPER GI/SM BOWEL COMPLETED DATE/TIME: 01/27/2019 REASON FOR STUDY: K21.9 GASTRO-ESOPHAGEAL REFLUX DISEASE WITHOUT ESOPHAGITIS R11.11 VOMITING WITHOU T NAUSEA COMPARISON: NG tube replacement films 01/06/2016 CT abdomen 09/27/2018 TECHNIQUE: Thin liquid barium was instilled through the patient's G-tube. Fluoroscopic and overhead films were obtained. RADIATION DOSE: 3.1 minutes total fluoro time 12 fluoroscopic images saved to PACS. LIMITATIONS: None FINDINGS: ESOPHAGUS: There is gastroesophageal reflux into the distal esophagus. No distal esophag eal stricture. STOMACH: Contrast was instilled through the patient's pre-existing G-tube. There is decreased gastri c motility. Mild delay in gastric emptying with gastroesophageal reflux. Gastric antrum was very di fficult to visualize, on the overhead films there may be stellate radiating folds in the antrum from ulcer. Duodenum, proximal jejunum are unremarkable. SMALL BOWEL: No evidence of malrotation, stricture, or obstruction. PROXIMAL LARGE BOWEL: Full of stool. IMPRESSION: Question radiating folds in the gastric antrum from ulcer. Delayed gastric emptying with decreased peristalsis. Small amount of gastroesophageal reflux during the study. Gastrostomy tube in good positioning. Duodenum and small bowel are unremarkable COMMENT: Quality ID [id number]: Final reports for procedures using fluoroscopy that document radiation exp osure indices, or exposure time and number of fluorographic images (if radiation exposure indices are not available) TECHNICAL DOCUMENTATION: JOB ID: [id number] [employer]- All Rights Reserved Reading location - IP/workstation name: [email or web address]
== END ==
LOC: RAD 08:58
PROVIDERS: ATTEND Internal Medicine Gastroenterology
DX: K21.9 Gastro-esophageal reflux disease without esophagitis (principal); R11.11 Vomiting without nausea
CPT/HCPCS: 74249

== ENCOUNTER 2019-04-19 06:57 | Day surgery (SDC) | payer MEDICAID ==
[~2019-04-19 06:57] MED LIST: CEFAZOLIN SODIUM 2 GM in DEXTROSE 5%-WATER 100 ML IV PRN
[2019-04-19 08:52] LABS: HEMATOCRIT 39.6 % (37.9-51.0); HEMOGLOBIN 13.4 g/dL (13.5-17.0); MEAN CORPUSCULAR HEMOGLOBIN 27.4 pg (27.0-33.4); MEAN CORPUSCULAR HGB CONC 33.9 g/dL (32.0-36.0); MEAN CORPUSCULAR VOLUME 81 fl (80-97); PLATELET COUNT 200 10^3/uL (150-450); RED CELL DISTRIBUTION WIDTH 14.8 % (11.5-14.0); WHITE BLOOD COUNT 8.4 10^3/uL (4.0-10.5)
[2019-04-19] MEDS ORDERED: MIDAZOLAM 2 MG/2 ML INJ ONE (09:06)
[2019-04-19] MEDS ORDERED: KETAMINE HCL INJ 500 MG/10 ML VIAL ONE (09:06)
[2019-04-19] MEDS ORDERED: FENTANYL CITRATE INJ/PF 100 MCG/2 ML AMPUL ONE (09:06)
[2019-04-19] MEDS ORDERED: PROPOFOL INJ 200 MG/20 ML VIAL IV ONE (09:06)
[2019-04-19] MEDS ORDERED: EPINEPHRINE INJ/PF 1 MG/1 ML AMPULE ONE (09:10)
[2019-04-19] MEDS ORDERED: BUPIVACAINE HCL 0.5 % INJ/PF 30 ML SDV ONE (09:10)
[2019-04-19] MEDS ORDERED: LIDOCAINE 2%/EPINEPHRINE INJ 1.7 ML CARTRIDGE ONE (09:13)
--- NOTE | 2019-04-19 10:53 | Operative Report ---
Operative Report-[facility] Operative Report: Date: 19 April 2019 History: Patient with a history of facial masses x2. Presents today for ex cision of those facial masses. Informed consent was obtained from the patient's caregiver. Pre-operative diagnosis: 1. Exophytic facial mass, right side 2. Subcutaneous facial mass, right side Post operative diagnosis: Same as above Procedure: 1. Excision exophytic facial mass, right side. Mass measuring 1.5 cm 2. Excision subcutaneous facial mass, right side. Mass measuring 2 cm Surgeon: Tom Gunn MD, FACS, [facility] Anesthesia: MAC Procedure: After receiving informed consent. The patient was brought to the operating room and placed supine on the operating room table. After successful induction with IV medication, the planned incision sites were drawn and then the masses were infiltrated with 2% Xylocaine with 100,000 epinephrine. Patient then prepped and draped in a sterile fashion. Attention was then directed to the exophytic mass located on the upper cheek on the right side. An ellipse was marked around the mass and this was incised using a 15 blade. The mass was removed in toto using blunt and sharp dissection. The wound edges were undermined using iris scissors and then the mass was closed in layers. The subcutaneous tissue was closed with 5-0 Monocryl and the skin was closed using 6-0 fast-absorbing gut. Attention was then directed to the lower cheek mass on the right side. This was located at the jawline. 15 blade was used to make an incision. And then using sharp and blunt dissection the subcutaneous mass was removed in toto. It was consistent with an epidermal inclusion cyst. Wound was irrigated with saline. The dermis was closed using 5-0 Monocryl. Dermabond , Mastisol and Steri-Strips were then placed over both wounds along with a pressure dressing. The patient tolerated the procedure well without any complications. Estimated blood loss: 5 mL Fluids: 150 mL The patient was then transported to the Post Anesthesia Care Unit in stable condition with spontaneous respiration. No complication.
[2019-04-19] MEDS ORDERED: ACETAMINOPHEN 325 MG TABLET PO PRN (10:56)
[2019-04-19] MEDS ORDERED: ONDANSETRON HCL INJ/PF 4 MG/2 ML SDV IV PRN (10:56)
[2019-04-19 12:36] VITALS: BP 160/98
--- NOTE | 2019-04-19 21:50 | EKG REPORT ---
SEVERITY:- OTHERWISE NORMAL ECG - SINUS TACHYCARDIA : Confirmed by: Estee Jones 19-Apr-2019 21:49:07
== END 2019-04-19 12:42 | disposition home health service (06) ==
LOC: OROUT 06:57
PROVIDERS: ATTEND Otolaryngology
DX: L72.0 Epidermal cyst (principal); I10 Essential (primary) hypertension; G40.909 Epilepsy, unspecified, not intractable, without status epilepticus; Z79.899 Other long term (current) drug therapy; R62.50 Unspecified lack of expected normal physiological development in childhood
CPT/HCPCS: 36415; 85027; 88304 ×2; 93005; 93010; 21012; J2250; J3490 ×2; J0690; J3010; J7060; J2704; 88305; J0171

== ENCOUNTER → 2019-08-28 | Outpatient (CLI) | payer MEDICAID ==
[2019-08-28 08:31] LABS: ABSOLUTE LYMPHOCYTES (AUTO) 1.7 10^3/uL (0.5-4.7); ABSOLUTE MONOCYTES (AUTO) 0.2 10^3/uL (0.1-1.4); ABSOLUTE NEUT (AUTO) 2.7 10^3/uL (1.7-8.2); BASOPHILS % (AUTO) 0.6 % (0-2); EOSINOPHILS % (AUTO) 0.9 % (0-6); HEMATOCRIT 38.2 % (37.9-51.0); HEMOGLOBIN 13.4 g/dL (13.5-17.0); LYMPHOCYTES % (AUTO) 36.4 % (13-45); MEAN CORPUSCULAR HEMOGLOBIN 29.2 pg (27.0-33.4); MEAN CORPUSCULAR HGB CONC 35.1 g/dL (32.0-36.0); MEAN CORPUSCULAR VOLUME 83 fl (80-97); MONOCYTES % (AUTO) 5.3 % (3-13); PLATELET COUNT 217 10^3/uL (150-450); RED BLOOD COUNT 4.59 10^6/uL (4.35-5.55); RED CELL DISTRIBUTION WIDTH 14.8 % (11.5-14.0); SEGMENTED NEUTROPHILS % (AUTO) 56.8 % (42-78); TOTAL CELLS COUNTED % (AUTO) 100 %; WHITE BLOOD COUNT 4.7 10^3/uL (4.0-10.5)
[2019-08-28 08:55] LABS: ALBUMIN 4.2 g/dL (3.5-5.0); ALKALINE PHOSPHATASE 124 U/L (38-126); ANION GAP 6 (5-19); ASPARTATE AMINO TRANSFERASE 25 U/L (17-59); BILIRUBIN,TOTAL 0.4 mg/dL (0.2-1.3); BLOOD UREA NITROGEN 23 mg/dL (7-20); CALCIUM 9.6 mg/dL (8.4-10.2); CARBON DIOXIDE 30 mmol/L (22-30); CHLORIDE 104 mmol/L (98-107); GLUCOSE 92 mg/dL (75-110); POTASSIUM 4.6 mmol/L (3.6-5.0); TOTAL PROTEIN 7.3 g/dL (6.3-8.2); TRIGLYCERIDES 140 mg/dL (<150)
[2019-08-28 09:09] LABS: DIRECT LDL 95 mg/dL (<100)
== END ==
LOC: OD 07:59
PROVIDERS: ATTEND Physician Assistant
DX: K21.9 Gastro-esophageal reflux disease without esophagitis (principal); K59.00 Constipation, unspecified; R32 Unspecified urinary incontinence; R56.9 Unspecified convulsions
CPT/HCPCS: 36415; 80053; 80061; 85025

== ENCOUNTER 2019-09-08 09:17 | Emergency (ER) | payer MEDICAID ==
--- NOTE | 2019-09-08 10:07 | ER Document Report ---
ED General - General Chief Complaint: Vomiting Stated Complaint: VOMITING Time Seen by Provider: 09/08/19 10:05 Primary Care Provider: OMA BAUTISTA PA-C [Primary Care Provider] - Follow up as needed Mode of Arrival: Medic Information source: Patient, Emergency Med Personnel Cannot obtain history due to: Other - patient has Autism TRAVEL OUTSIDE OF THE [place] IN LAST 30 DAYS: No - HPI Onset: This morning - around 5am Onset/Duration: Sudden Quality of pain: No pain Severity: Mild Pain Level: Denies Associated symptoms: Nausea, Vomiting Exacerbated by: Denies Relieved by: Denies Similar symptoms previously: No Recently seen / treated by doctor: No Notes: 44 year old male with a history of Autism, Developmental Delay, Seizures, HTN who has a G tube and lives in a [facility] brought to the ER by EMS for 3 episodes of vomiting which started at 5am. The patient has care givers around the clock at the [facility] and one of the caregivers is with him in the ER. The caregiver is providing most of the history since the patient does not want to talk to me. The home care companion denies the patient having any recent fevers, chills, sweats, diarrhea, sick contacts, recent travel. The patient has been acting his normal self today except he has not had breakfast yet. Apparently the patient has PRN Zofran but none was given this morning. - Related Data Allergies/Adverse Reactions: No Known Allergies Allergy (Verified 04/19/19 08:00) Home Medications: Claritin. Seroquil. Onfi. Catapress. Iron. Lactulose. Lamictal. Keppra. Zegrid. Zofran. Desyrel. Nimpat Past Medical History - General Information source: Patient Cannot obtain history due to: Other - Autism - Social History Smoking Status: Never Smoker Frequency of alcohol use: None Drug Abuse: None Lives with: Other - [facility] Family History: None Patient has homicidal ideation: No - Past Medical History Cardiac Medical History: Reports: Hx Hypertension Denies: Hx Coronary Artery Disease, Hx Heart Attack Pulmonary Medical History: Denies: Hx Asthma, Hx Bronchitis, Hx COPD, Hx Pneumonia Neurological Medical History: Reports: Hx Seizures - SEIZURES AT LEAST TWICE WE EKLY. Denies: Hx Cerebrovascular Accident Renal/ Medical History: Denies: Hx Peritoneal Dialysis GI Medical History: Reports: Hx Endoscopy - g tube. Denies: Hx Ulcer Musculoskeletal Medical History: Denies Hx Arthritis Past Surgical History: Reports: Hx Abdominal Surgery - g-tube. Denies: Hx Open Heart Surgery, Hx Pacemaker - Immunizations Immunizations up to date: Yes Hx Diphtheria, Pertussis, Tetanus Vaccination: Yes Review of Systems - Review of Systems Constitutional: No symptoms reported EENT: No symptoms reported Cardiovascular: No symptoms reported Respiratory: No symptoms reported Gastrointestinal: Nausea, Vomiting Genitourinary: No symptoms reported Male Genitourinary: No symptoms reported Musculoskeletal: No symptoms reported Skin: No symptoms reported Hematologic/Lymphatic: No symptoms reported Neurological/Psychological: No symptoms reported -: Yes All other systems reviewed and negative Physical Exam - Vital signs Vitals: Temp Pulse Resp BP Pulse Ox 98.5 F 94 18 145/104 H 99 09/08/19 09:21 09/08/19 09:21 09/08/19 09:21 09/08/19 09:21 09/08/19 09:21 - Notes Notes: GENERAL: Well-appearing, well-nourished and in no acute distress. HEAD: Atraumatic, normocephalic. EYES: Pupils equal round and reactive to light, extraocular movements intact, sclera anicteric, conjunctiva are normal. ENT: External ears normal, nares patent, oropharynx clear without exudates. Moist mucous membranes. NECK: Normal range of motion, supple without lymphadenopathy or JVD. LUNGS: Breath sounds clear to auscultation bilaterally and equal. No wheezes rales or rhonchi. HEART: Regular rate and rhythm without murmurs, rubs or gallops. ABDOMEN: G tube in placed and seems to be working normally. Abdomen is soft, nontender, normoactive bowel sounds. No guarding, no rebound. No masses appreciated. EXTREMITIES: Normal range of motion, no pitting or edema. No clubbing or cyanosis. NEUROLOGICAL: Patient has developmental delay. Cranial nerves II through XII grossly intact. Normal speech, normal gait. PSYCH: Autistic but otherwise apparently normal mood, normal affect for him according to [facility] with him. SKIN: Warm, Dry, normal turgor, no rashes or lesions noted. Course - Re-evaluation Re-evalutation: 09/08/19 11:58 The patient was brought to the ER for nausea and vomiting. Blood work was unremarkable but UA was consistent with a UTI. Plan will be to obtain a urine culture and treat patient with a week of Keflex 500mg BID. Patient has normal vital signs and does not meet sepsis criteria. Patient is safe for outpatient treatment and follow up. - Vital Signs Vital signs: Temp Pulse Resp BP Pulse Ox 98.5 F 94 18 145/104 H 99 09/08/19 09:27 09/08/19 09:21 09/08/19 09:21 09/08/19 09:21 09/08/19 09:21 - Laboratory Result Diagrams: 09/08/19 10:55 09/08/19 10:55 Laboratory results interpreted by me: 09/08/19 09/08/19 09/08/19 10:55 10:55 11:20 RDW 14.4 H Seg Neutrophils % 79.2 H Creatinine 1.38 H Est GFR (MDRD) Non-Af 56 L Glucose 115 H Urine Protein 30 H Urine Ketones TRACE H Ur Leukocyte Esterase LARGE H Discharge - Discharge Clinical Impression: Nausea & vomiting Qualifiers: Vomiting type: unspecified Vomiting Intractability: unspecified Qualified Code(s): R11.2 - Nausea with vomiting, unspecified UTI (urinary tract infection) Qualifiers: Urinary tract infection type: acute cystitis Hematuria presence: without hematuria Qualified Code(s): N30.00 - Acute cystitis without hematuria Condition: Stable Disposition: HOME, SELF-CARE Instructions: Urinary Tract Infection ([facility]), Vomiting ([facility]) Additional Instructions: Take antibiotics (Keflex) as prescribed. Use your previously prescribed Zofran for nausea/vomiting. Stay hydrated in the days to come by drinking more fluids than normal. Follow up with your primary care doctor and have your doctor go over your urine culture results (they should result in 48 hours). Return to an ER if worse in anyway. Prescriptions: Cephalexin Monohydrate [Keflex 500 mg Capsule] 500 mg PO BID 5 Days #14 capsule Referrals: OMA BAUTISTA PA-C [Primary Care Provider] - Follow up as needed
[2019-09-08] MEDS ORDERED: ONDANSETRON 4 MG TAB.RAPDIS PO ONE (10:17)
[2019-09-08 11:14] LABS: ABSOLUTE MONOCYTES (AUTO) 0.4 10^3/uL (0.1-1.4); ABSOLUTE NEUT (AUTO) 5.5 10^3/uL (1.7-8.2); BASOPHILS % (AUTO) 0.3 % (0-2); HEMATOCRIT 41.3 % (37.9-51.0); HEMOGLOBIN 14.4 g/dL (13.5-17.0); LYMPHOCYTES % (AUTO) 15.1 % (13-45); MEAN CORPUSCULAR HGB CONC 34.9 g/dL (32.0-36.0); MEAN CORPUSCULAR VOLUME 83 fl (80-97); MONOCYTES % (AUTO) 5.4 % (3-13); PLATELET COUNT 238 10^3/uL (150-450); RED BLOOD COUNT 4.97 10^6/uL (4.35-5.55); RED CELL DISTRIBUTION WIDTH 14.4 % (11.5-14.0); SEGMENTED NEUTROPHILS % (AUTO) 79.2 % (42-78); TOTAL CELLS COUNTED % (AUTO) 100 %; WHITE BLOOD COUNT 6.9 10^3/uL (4.0-10.5)
[2019-09-08 11:34] LABS: ALBUMIN 4.5 g/dL (3.5-5.0); ALKALINE PHOSPHATASE 123 U/L (38-126); ANION GAP 7 (5-19); ASPARTATE AMINO TRANSFERASE 20 U/L (17-59); BILIRUBIN,DIRECT 0.1 mg/dL (0.0-0.4); BILIRUBIN,TOTAL 0.5 mg/dL (0.2-1.3); BLOOD UREA NITROGEN 18 mg/dL (7-20); CALCIUM 9.6 mg/dL (8.4-10.2); CARBON DIOXIDE 30 mmol/L (22-30); CHLORIDE 104 mmol/L (98-107); GLUCOSE 115 mg/dL (75-110); POTASSIUM 4.2 mmol/L (3.6-5.0); TOTAL PROTEIN 7.7 g/dL (6.3-8.2)
[2019-09-08 11:48] LABS: APPEARANCE,URINE SLIGHTLY-CLOUDY; BILIRUBIN,URINE NEGATIVE (NEGATIVE); COLOR,URINE YELLOW; GLUCOSE, URINE NEGATIVE (NEGATIVE); KETONES,URINE TRACE mg/dL (NEGATIVE); LEUKOCYTE ESTERASE,URINE LARGE (NEGATIVE); NITRITE,URINE NEGATIVE (NEGATIVE); PROTEIN,URINE 30 mg/dL (NEGATIVE); URINE SPECIFIC GRAVITY 1.021; UROBILINOGEN,URINE NEGATIVE mg/dL (<2.0)
[2019-09-08] MEDS ORDERED: CEFTRIAXONE 1 GM/D5W RTU 50 ML IV ONE (11:52)
[2019-09-08] MEDS ORDERED: CEPHALEXIN 500 MG CAPSULE PO ONE (12:00)
[2019-09-08 12:33] VITALS: BP 125/85
== END 2019-09-08 12:36 | disposition home or self-care (01) ==
LOC: ER 09:17
DX: N30.00 Acute cystitis without hematuria (principal); R11.2 Nausea with vomiting, unspecified; I10 Essential (primary) hypertension
CPT/HCPCS: 99283; 36415; 87086; 83690; 85025; 80053; 81001; S0119

== ENCOUNTER 2019-09-09 09:11 | Emergency (ER) | payer MEDICAID ==
--- NOTE | 2019-09-09 09:27 | ER Document Report ---
ED Medical Screen (RME) - General Stated Complaint: NAUSEA,VOMITNG Time Seen by Provider: 09/09/19 09:21 Primary Care Provider: OMA BAUTISTA PA-C [Primary Care Provider] - Follow up as needed Mode of Arrival: Medic Information source: Emergency Med Personnel Notes: 44-year-old male with autism developmental delay hypertension and seizures presents today via EMS for reports of vomiting and lethargic. Patient was treated for UTI and vomiting yesterday. He has not had his antibiotics yet. He did have some Zofran this morning. Caregiver at the bedside is giving all information. Patient does have a G-tube for his medicines. According to the nurse he is able to swallow food but not medicine. Abdomen palpated no facial grimacing noted. No reports of fever or diarrhea. I have greeted and performed a rapid initial assessment of this patient. A comprehensive ED assessment and evaluation of the patient, analysis of test results and completion of the medical decision making process will be conducted by additional ED providers. TRAVEL OUTSIDE OF THE [place] IN LAST 30 DAYS: No - Related Data Allergies/Adverse Reactions: No Known Allergies Allergy (Verified 04/19/19 08:00) Past Medical History - Past Medical History Cardiac Medical History: Denies: Hx Coronary Artery Disease, Hx Heart Attack, Hx Hypertension Pulmonary Medical History: Denies: Hx Asthma, Hx Bronchitis, Hx COPD, Hx Pneumonia Neurological Medical History: Reports: Hx Seizures - SEIZURES AT LEAST TWICE WEEKLY. Denies: Hx Cerebrovascular Accident Renal/ Medical History: Denies: Hx Peritoneal Dialysis GI Medical History: Reports: Hx Endoscopy - g tube. Denies: Hx Ulcer Musculoskeltal Medical History: Denies Hx Arthritis Past Surgical History: Reports: Hx Abdominal Surgery. Denies: Hx Open Heart Surgery, Hx Pacemaker - Immunizations Immunizations up to date: Yes Hx Diphtheria, Pertussis, Tetanus Vaccination: Yes Doctor's Discharge - Discharge Referrals: OMA BAUTISTA PA-C [Primary Care Provider] - Follow up as needed
[2019-09-09 09:33] VITALS: BP 125/85
[2019-09-09] MEDS ORDERED: NORMAL SALINE 1000 ML 1,000 ML IV ONE (09:59)
[2019-09-09] MEDS ORDERED: METOCLOPRAMIDE HCL INJ/PF 10 MG/2 ML SDV IM ONE (10:04)
[2019-09-09] MEDS ORDERED: CEFTRIAXONE INJ 1000 MG VIAL IM ONE (10:04)
--- NOTE | 2019-09-09 10:07 | ER Document Report ---
ED GI/ - General Mode of Arrival: Medic TRAVEL OUTSIDE OF THE [place] IN LAST 30 DAYS: No - General Chief Complaint: Nausea/Vomiting Stated Complaint: NAUSEA,VOMITNG Time Seen by Provider: 09/09/19 09:21 Primary Care Provider: OMA BAUTISTA PA-C [Primary Care Provider] - Follow up in 3-5 days Notes: Patient is a 44-year-old male who presents to the emergency department with vomiting. Patient was diagnosed with a urinary tract infection yesterday and was started on Keflex. Patient lives in a senior living and the engine watchman is at bedside and states that when he is laying down, he ends up vomiting. If he is sitting up, he does not vomit. He received his first dose of Keflex yesterday, along with a dose of Rocephin. Past medical history includes developmental delay, hypertension, and seizures. Patient is fed via G-tube. Finishing Area Operator is providing patient information. (VIKTORIA BLUM) - Related Data Allergies/Adverse Reactions: No Known Allergies Allergy (Verified 09/09/19 09:24) Past Medical History - General Information source: Emergency Med Personnel, Outside Facility Records - Social History Smoking Status: Never Smoker Family History: None Patient has homicidal ideation: No - Past Medical History Cardiac Medical History: Denies: Hx Coronary Artery Disease, Hx Heart Attack, Hx Hypertension Pulmonary Medical History: Denies: Hx Asthma, Hx Bronchitis, Hx COPD, Hx Pneumonia Neurological Medical History: Reports: Hx Seizures - SEIZURES AT LEAST TWICE WEEKLY. Denies: Hx Cerebrovascular Accident Renal/ Medical History: Denies: Hx Peritoneal Dialysis GI Medical History: Reports: Hx Endoscopy - g tube. Denies: Hx Ulcer Musculoskeletal Medical History: Denies Hx Arthritis Past Surgical History: Reports: Hx Abdominal Surgery. Denies: Hx Open Heart Surgery, Hx Pacemaker - Immunizations Immunizations up to date: Yes Hx Diphtheria, Pertussis, Tetanus Vaccination: Yes Review of Systems - Review of Systems -: Yes ROS unobtainable due to patient's medical condition Physical Exam - Vital signs Vitals: Temp Pulse Resp BP Pulse Ox 97.9 F 89 16 125/85 100 09/09/19 09:26 09/09/19 09:26 09/09/19 09:26 09/09/19 09:26 09/09/19 09:26 - Notes Notes: PHYSICAL EXAMINATION: GENERAL: Appears developmentally delayed, no acute distress. HEAD: Normocephalic, atraumatic. EYES: PERRL, conjunctiva normal, all extraocular movements intact, sclera nonicteric ENT: Moist mucous membranes. NECK: Supple, no noticeable swelling, redness, rash. Normal range of motion. LUNGS: Equal breath sounds bilaterally and clear to auscultation. No wheezes rales or rhonchi. CARDIOVASCULAR: S1-S2, regular rate, regular rhythm. Radial pulses 2+, normal. ABDOMEN: Normoactive bowel sounds. Soft, mildly tender mid lower abdomen, no guarding, no rebound tenderness, and no masses palpated. EXTREMITIES: Normal strength and range of motion, no pitting or edema. No cyanosis. NEUROLOGICAL: Strength 5/5 in all extremities. PSYCH: Normal mood, normal affect. SKIN: Warm, dry. No rash, lesions, ulcerations noted. Normal skin turgor. (VIKTORIA BLUM) Course - Re-evaluation Re-evalutation: 09/09/19 10:[address] Almeida, who took care of the patient yesterday. He is suggesting that the patient be started on Reglan and continue Keflex. Urine culture was sent yesterday. Will not repeat labs. Also start the patient on Phenergan suppository, as he has had this medication before, but he is almost out of the medication. Dr. Almeida also evaluated the patient and states that he looks better than he did yesterday. Follow-up precautions were given. Verbal discharge instructions were given to the patient. They verbalized understanding. They are stable for discharge. (VIKTORIA BLUM) 09/09/19 11:31 The patient was seen and evaluated by me with Viktoria Blum. The patient was diagnosed with a UTI by me yesterday in the ER. The patient had blood work and a urine culture then which is still pending. Patient did not meet sepsis criteria today and today his vitals are all within normal limits. The patient was only brought back to the ER for another episode of emesis. The patient was given Phenergan suppository since he apparently continues to vomit his anti-emetics via G tube and antibiotics via G tube. Patient given another dose of Rocephin in the ER today. Plan is for patient to finish his previously prescribed Keflex for his known UTI. (GLORIA ALMEIDA H) - Vital Signs Vital signs: Temp Pulse Resp BP Pulse Ox 97.9 F 89 16 125/85 100 09/09/19 09:29 09/09/19 09:26 09/09/19 09:26 09/09/19 09:26 09/09/19 09:26 Discharge - Discharge Clinical Impression: Nausea & vomiting Qualifiers: Vomiting type: unspecified Vomiting Intractability: unspecified Qualified Code(s): R11.2 - Nausea with vomiting, unspecified UTI (urinary tract infection) Qualifiers: Urinary tract infection type: site unspecified Hematuria presence: without hematuria Qualified Code(s): N39.0 - Urinary tract infection, site not specified Condition: Stable Disposition: HOME, SELF-CARE Instructions: Urinary Tract Infection ([facility]), Vomiting ([facility]) Additional Instructions: He was seen today in the emergency department for vomiting. His Phenergan was refilled. Continue nausea medication as needed. Please continue the Keflex for his urinary tract infection. Follow-up with his primary care provider in regards to this visit. Prescriptions: Promethazine HCl [Phenergan 25 mg Supp.rect] 25 mg ND Q4HP PRN #15 supp.rect PRN Reason: Referrals: OMA BAUTISTA PA-C [Primary Care Provider] - Follow up in 3-5 days
[2019-09-09] MEDS ORDERED: LIDOCAINE 1% INJ-PF (10 MG/ML) 30 ML SDV ONE (10:08)
[2019-09-09] MEDS ORDERED: LIDOCAINE 1.5%/EPINEPHRINE INJ-PF 30 ML SDV INJ ONE (10:26)
== END 2019-09-09 11:20 | disposition home or self-care (01) ==
LOC: ER 09:11
DX: R11.2 Nausea with vomiting, unspecified (principal); N39.0 Urinary tract infection, site not specified; I10 Essential (primary) hypertension; Z93.1 Gastrostomy status
CPT/HCPCS: 99283; 96372; J3490; J2765; J0696

== ENCOUNTER 2019-09-11 17:52 | Emergency (ER) | payer MEDICAID ==
[2019-09-11 18:30] LABS: ABSOLUTE LYMPHOCYTES (AUTO) 1.2 10^3/uL (0.5-4.7); ABSOLUTE MONOCYTES (AUTO) 0.9 10^3/uL (0.1-1.4); ABSOLUTE NEUT (AUTO) 8.7 10^3/uL (1.7-8.2); BASOPHILS % (AUTO) 0.2 % (0-2); EOSINOPHILS % (AUTO) 0.1 % (0-6); HEMATOCRIT 42.4 % (37.9-51.0); HEMOGLOBIN 15.1 g/dL (13.5-17.0); LYMPHOCYTES % (AUTO) 11.5 % (13-45); MEAN CORPUSCULAR HEMOGLOBIN 29.4 pg (27.0-33.4); MEAN CORPUSCULAR HGB CONC 35.6 g/dL (32.0-36.0); MEAN CORPUSCULAR VOLUME 83 fl (80-97); PLATELET COUNT 208 10^3/uL (150-450); RED BLOOD COUNT 5.14 10^6/uL (4.35-5.55); RED CELL DISTRIBUTION WIDTH 14.2 % (11.5-14.0); SEGMENTED NEUTROPHILS % (AUTO) 80.2 % (42-78); TOTAL CELLS COUNTED % (AUTO) 100 %; WHITE BLOOD COUNT 10.9 10^3/uL (4.0-10.5)
[2019-09-11] MEDS ORDERED: NORMAL SALINE 1000 ML 1,000 ML IV ONE (19:28)
[2019-09-11] MEDS ORDERED: ONDANSETRON HCL INJ/PF 4 MG/2 ML SDV IV ONE (19:28)
--- NOTE | 2019-09-11 19:30 | ER Document Report ---
ED General - General Chief Complaint: Vomiting Stated Complaint: VOMITING Time Seen by Provider: 09/11/19 19:11 Primary Care Provider: OMA BAUTISTA PA-C [Primary Care Provider] - Follow up as needed TRAVEL OUTSIDE OF THE [place] IN LAST 30 DAYS: No - HPI Notes: Chief complaint: Vomiting HPI: 44-[facility]-old [facility] nonverbal at baseline seizure disorder with history of severe autism and seen now for recurrent vomiting and diminished oral intake. Patient was treated here several days ago for urinary tract infection and is currently taking an antibiotic. Payroll Benefits Clerk reports vomiting is "better" which seems to occur about 45 minutes after he takes oral meds. They have noticed some coffee-ground material with this. No melena or hematochezia. No fever. - Related Data Allergies/Adverse Reactions: No Known Allergies Allergy (Verified 09/09/19 09:24) Past Medical History - General Information source: Patient, [facility] Records Cannot obtain history due to: Mentally challenged - Social History Smoking Status: Never Smoker Frequency of alcohol use: None Drug Abuse: None Lives with: Other - assisted Family History: None Patient has homicidal ideation: No - Past Medical History Cardiac Medical History: Reports: Hx Hypertension Denies: Hx Coronary Artery Disease, Hx Heart Attack Pulmonary Medical History: Denies: Hx Asthma, Hx Bronchitis, Hx COPD, Hx Pneumonia Neurological Medical History: Reports: Hx Seizures - SEIZURES AT LEAST TWICE WEEKLY. Denies: Hx Cerebrovascular Accident Renal/ Medical History: Denies: Hx Peritoneal Dialysis GI Medical History: Reports: Hx Endoscopy - g tube. Denies: Hx Ulcer Musculoskeletal Medical History: Denies Hx Arthritis Past Surgical History: Reports: Hx Abdominal Surgery - g-tube placement. Denies: Hx Open Heart Surgery, Hx Pacemaker - Immunizations Immunizations up to date: Yes Hx Diphtheria, Pertussis, Tetanus Vaccination: Yes Review of Systems - Review of Systems -: Yes ROS unobtainable due to patient's medical condition Physical Exam - Vital signs Vitals: Temp Pulse Resp BP Pulse Ox 98.3 F 114 H 20 136/113 H 97 09/11/19 17:56 09/11/19 17:56 09/11/19 17:56 09/11/19 17:56 09/11/19 17:56 - Notes Notes: GENERAL: Well-developed well-nourished middle-age male wearing a crash helmet appearing in no acute distress. SKIN: Good turgor no rashes. HEAD: Normocephalic atraumatic. EYES: PERRLA. EOMI. Conjunctivae and sclerae clear. EARS: CANALS AND TMS CLEAR. NOSE: CLEAR. MOUTH: Moist mucosa. Good dentition. No stridor or edema. No drooling. NECK: Supple. No masses or thyromegaly. No adenopathy. Carotids 2+ without bruits. No JVD. BACK: Symmetrical without tenderness. CHEST: Respirations unlabored. Breath sounds clear and symmetrical. HEART: Regular rhythm. No murmur gallop or rub. ABDOMEN: G-tube present. Currently no drainage from this. There is no redness at the site. Soft nontender without masses, organomegaly or rebound. Bowel sounds normally active. No bruits. GENITALIA: Deferred. EXTREMITIES: No edema. No calf tenderness. Cap refill less than 1.5 seconds. Dorsalis pedis and posterior tibial pulses 3+ and symmetrical. NEUROLOGICAL: Patient is at usual baseline per high school vice principal. He is nonverbal. He is alert and moving all 4 extremities symmetrically. Course - Re-evaluation Re-evalutation: 09/12/19 00:54 Initial concern was that this patient might have bowel obstruction or gastric outlet obstruction. He was given IV normal saline and IV Zofran. No further vomiting while here. CBC and comprehensive metabolic profile as well as lipase level were normal. CT scan of abdomen pelvis with IV contrast and contrast administered through G-tube showed no evidence of obstruction. He has some chronic changes in his kidneys which will require further outpatient evaluation. He was noted to have a large amount of retained stool in the colon. Enemas were administered. He was given a dose of IV Protonix here. Findings were di scussed with his travel journalist Dr. Jamil who recommended further outpatient treatment for reflux. I will start him on Protonix. I will also prescribe MiraLAX. - Vital Signs Vital signs: Temp Pulse Resp BP Pulse Ox 98.3 F 114 H 112 H 122/85 100 09/11/19 17:56 09/11/19 17:56 09/11/19 20:00 09/11/19 22:00 09/11/19 22:01 - Laboratory Result Diagrams: 09/11/19 18:23 05/11/20 18:23 Laboratory results interpreted by me: 09/11/19 09/11/19 09/11/19 18:23 18:23 21:15 WBC 10.9 H RDW 14.2 H Lymph % (Auto) 11.5 L Absolute Neuts (auto) 8.7 H Seg Neutrophils % 80.2 H Carbon Dioxide 35 H BUN 43 H Creatinine 1.56 H Est GFR ( Amer) 59 L Est GFR (MDRD) Non-Af 49 L Glucose 135 H Urine Protein 100 H Urine Ketones TRACE H Urine Urobilinogen 2.0 H Discharge - Discharge Clinical Impression: Nausea & vomiting Qualifiers: Vomiting type: unspecified Vomiting Intractability: non-intractable Qualified Code(s): R11.2 - Nausea with vomiting, unspecified Constipation Qualifiers: Constipation type: unspecified constipation type Qualified Code(s): K59.00 - Constipation, unspecified Gastroesophageal reflux Qualifiers: Esophagitis presence: esophagitis presence not specified Qualified Code(s): K21.9 - Gastro-esophageal reflux disease without esophagitis Condition: Stable Disposition: OTHER Additional Instructions: Follow-up with your travel journalist as an outpatient. You should also follow-up with your primary care doctor regarding abnormal kidney findings noted on the CT scan today. Prescriptions: Polyethylene Glycol 3350 [Miralax] 1 cap PO DAILY #527 powder Pantoprazole Sodium [Protonix [address] Tablet] 40 mg PO NOW 30 Days #30 tablet.dr Ondansetron [Zofran Odt 4 mg Tablet] 1 - 2 tab PO Q4H PRN #15 tab.rapdis PRN Reason: For Nausea/Vomiting Referrals: OMA BAUTISTA PA-C [Primary Care Provider] - Follow up as needed
[2019-09-11 19:44] LABS: ALBUMIN 4.6 g/dL (3.5-5.0); ALKALINE PHOSPHATASE 103 U/L (38-126); ANION GAP 8 (5-19); ASPARTATE AMINO TRANSFERASE 20 U/L (17-59); BILIRUBIN,DIRECT 0.1 mg/dL (0.0-0.4); BILIRUBIN,TOTAL 0.5 mg/dL (0.2-1.3); BLOOD UREA NITROGEN 43 mg/dL (7-20); CALCIUM 9.3 mg/dL (8.4-10.2); CARBON DIOXIDE 35 mmol/L (22-30); CHLORIDE 99 mmol/L (98-107); GLUCOSE 135 mg/dL (75-110); POTASSIUM 3.7 mmol/L (3.6-5.0); TOTAL PROTEIN 7.7 g/dL (6.3-8.2)
[2019-09-11 21:35] LABS: APPEARANCE,URINE SLIGHTLY-CLOUDY; BILIRUBIN,URINE NEGATIVE (NEGATIVE); COLOR,URINE AMBER; GLUCOSE, URINE NEGATIVE (NEGATIVE); KETONES,URINE TRACE mg/dL (NEGATIVE); LEUKOCYTE ESTERASE,URINE NEGATIVE (NEGATIVE); NITRITE,URINE NEGATIVE (NEGATIVE); PROTEIN,URINE 100 mg/dL (NEGATIVE); URINE SPECIFIC GRAVITY 1.036
--- NOTE | 2019-09-11 21:58 | RADIOLOGY REPORT (SQ) ---
EXAM DESCRIPTION: CT ABDOMEN PELVIS WITH IV CONTRAST COMPLETED DATE/TME: 09/11/2019 00:00 CLINICAL HISTORY: 44 years Male abd pain/emesis COMPARISON: 09/27/2018 TECHNIQUE: Contiguous axial images obtained through the abdomen and pelvis following IV contrast. Reformatted images obtained. This exam was performed according to our department optimization program which includes automated exposure control, adjustment of the mA and/or kv according to patient size and/or use of iterative reconstruction technique. FINDINGS: Trace pleural effusions. Trace pericardial effusion. Postsurgical changes along the left lobe of the liver. There are fat attenuation lesions within the liver one in the posterior medial right lobe on image 19 and two in the medial left lobe on images 2526. The spleen and pancreas appear unremarkable. No adrenal masses. Diffusely abnormal kidneys with numerous lesions most of which appear to contain macroscopic fat. The possibility of solid lesion which does not contain fat would be difficult to exclude on this examination. No evidence of hydronephrosis. Kidneys appear similar to the previous exam. Percutaneous PEG tube in place. Possible MANUFACTURING PROJECT ENGINEER shunt tube in the abdomen. The gallbladder is absent. No aneurysmal dilatation of the aorta. No bowel obstruction. The appendix is unremarkable. No significant free fluid noted. Moderate fecal material in the colon. IMPRESSION: Diffusely abnormal kidneys with numerous masses the majority of which appear to contain macroscopic fat consistent with angiomyolipomas. The possibility of solid lesion without macroscopic fat would be difficult to exclude on this examination. Angiomyolipomas appear similar to the previous Fat-containing lesions in the liver Trace pleural and pericardial effusion Moderate fecal material throughout the colon
[2019-09-11] MEDS ORDERED: PANTOPRAZOLE SODIUM 40 MG VIAL IV ONE (22:57)
[2019-09-11] MEDS ORDERED: MINERAL OIL 30 ML UDCUP PR ONE (22:57)
[2019-09-12 01:22] VITALS: BP 128/104
== END 2019-09-12 01:33 | disposition other institution (70) ==
LOC: ER 17:52
DX: K59.00 Constipation, unspecified (principal); K21.9 Gastro-esophageal reflux disease without esophagitis; R11.2 Nausea with vomiting, unspecified; G40.909 Epilepsy, unspecified, not intractable, without status epilepticus; F84.0 Autistic disorder; R63.0 Anorexia; I10 Essential (primary) hypertension
CPT/HCPCS: 99284; 96361; 96374; 96375; 36415; 83690; 83735; 85025; 80053; 81001; 74177; J3490; C9113; J2405; J7030

== ENCOUNTER → 2019-09-20 | Outpatient (CLI) | payer MEDICAID ==
[2019-09-20 10:18] LABS: ALKALINE PHOSPHATASE 104 U/L (38-126); ANION GAP 6 (5-19); ASPARTATE AMINO TRANSFERASE 17 U/L (17-59); BILIRUBIN,TOTAL 0.4 mg/dL (0.2-1.3); BLOOD UREA NITROGEN 11 mg/dL (7-20); CALCIUM 9.3 mg/dL (8.4-10.2); CARBON DIOXIDE 37 mmol/L (22-30); CHLORIDE 96 mmol/L (98-107); GLUCOSE 106 mg/dL (75-110); POTASSIUM 3.5 mmol/L (3.6-5.0); TOTAL PROTEIN 6.9 g/dL (6.3-8.2)
== END ==
LOC: OD 08:51
PROVIDERS: ATTEND Internal Medicine Gastroenterology
DX: R11.11 Vomiting without nausea (principal)
CPT/HCPCS: 36415; 80053

== ENCOUNTER 2019-10-10 19:07 | Emergency (ER) | payer MEDICAID ==
[2019-10-10] MEDS ORDERED: LIDOCAINE 1%/EPINEPHRINE INJ 20 ML VIAL ONE (19:25)
--- NOTE | 2019-10-10 21:16 | ER Document Report ---
ED General - General Chief Complaint: Laceration Stated Complaint: FALL-HEAD LACERATION Time Seen by Provider: 10/10/19 19:18 Primary Care Provider: OMA BAUTISTA PA-C [Primary Care Provider] - Follow up as needed Information source: Friend - Home Health Provider Cannot obtain history due to: Mentally challenged TRAVEL OUTSIDE OF THE [place] IN LAST 30 DAYS: No - HPI Onset: Just prior to arrival Onset/Duration: Sudden Quality of pain: Sharp Severity: Moderate Pain Level: 2 Associated symptoms: Other - Forehead laceration with bleeding Exacerbated by: Denies Relieved by: Denies Similar symptoms previously: Yes - patient has had seizures before Recently seen / treated by doctor: No Notes: 44 year old male with a history of Seizures, Autism and developmental delay here in the ER for evaluation after of head trauma after he had a seizure (he fell and hit his head on a sink). The patient is on multiple seizure medications and he has been given them as prescribed. EMS was called and they gave the patient Versed and transported the patient to the ER. The patient was apparently postictal with EMS and he was drowsy but arousable on ER arrival. The patient's care given denies LOC after hitting his head on the sink. - Related Data Allergies/Adverse Reactions: No Known Allergies Allergy (Verified 09/09/19 09:24) Past Medical History - General Information source: Patient, Friend - Home Health Provider - Social History Smoking Status: Never Smoker Frequency of alcohol use: None Drug Abuse: None Family History: Reviewed & Not Pertinent Patient has suicidal ideation: No Patient has homicidal ideation: No - Past Medical History Cardiac Medical History: Reports: Hx Hypertension Denies: Hx Coronary Artery Disease, Hx Heart Attack Pulmonary Medical History: Denies: Hx Asthma, Hx Bronchitis, Hx COPD, Hx Pneumonia Neurological Medical History: Reports: Hx Seizures - SEIZURES AT LEAST TWICE WEEKLY. Denies: Hx Cerebrovascular Accident Renal/ Medical History: Denies: Hx Peritoneal Dialysis GI Medical History: Reports: Hx Endoscopy - g tube. Denies: Hx Ulcer Musculoskeletal Medical History: Denies Hx Arthritis Psychiatric Medical History: Reports: Other - Autism Past Surgical History: Reports: Hx Abdominal Surgery - g-tube placement. Denies: Hx Open Heart Surgery, Hx Pacemaker - Immunizations Immunizations up to date: Yes Hx Diphtheria, Pertussis, Tetanus Vaccination: Yes Review of Systems - Review of Systems Constitutional: Other - Forehead Trauma EENT: No symptoms reported Cardiovascular: No symptoms reported Respiratory: No symptoms reported Gastrointestinal: No symptoms reported Genitourinary: No symptoms reported Male Genitourinary: No symptoms reported Musculoskeletal: No symptoms reported Skin: Other - Laceration to Forehead with bleeding Hematologic/Lymphatic: No symptoms reported Neurological/Psychological: No symptoms reported, Seizure -: Yes All other systems reviewed and negative Physical Exam - Vital signs Vitals: Temp Pulse Resp BP Pulse Ox 98.6 F 87 20 148/102 H 97 10/10/19 19:08 10/10/19 19:08 10/10/19 19:08 10/10/19 19:08 10/10/19 19:08 - Notes Notes: GENERAL: Drowsy but arousable, bloody dressing wrapped around head. Overall, well-appearing, well-nourished and in no acute distress. HEAD: Atraumatic, normocephalic. EYES: Pupils equal round and reactive to light, extraocular movements intact, sclera anicteric, conjunctiva are normal. ENT: External ears normal, nares patent, oropharynx clear without exudates. Moist mucous membranes. NECK: Normal range of motion, supple without lymphadenopathy or JVD. LUNGS: Breath sounds clear to auscultation bilaterally and equal. No wheezes rales or rhonchi. HEART: Regular rate and rhythm without murmurs, rubs or gallops. ABDOMEN: Soft, nontender, normoactive bowel sounds. No guarding, no rebound. No masses appreciated. EXTREMITIES: Normal range of motion, no pitting or edema. No clubbing or cyanosis. NEUROLOGICAL: Cranial nerves II through XII grossly intact. Normal speech, normal gait. PSYCH: Normal mood, normal affect. SKIN: 5.5cm jagged laceration down middle of forehead which is deep and involves muscle. Warm, Dry, normal turgor, no rashes or lesions noted. Course - Re-evaluation Re-evalutation: 10/10/19 21:28 The patient has a forehead laceration which was caused by him hitting his head on a sink during a seizure. The patient's laceration was repaired by me at the bedside. CT scan of head shows no intracranial trauma but there is an intracranial mass. I spoke with the patient's Care Givers and they are aware of this mass. The patient's CT read was printed out and given to the patient's Caregiver and the images from today were pushed to [facility]. I told the patient's childcare center director to have the patient's Neurologist go over the CT scan from today compared to previous head imaging to ensure no change. Patient had his tetanus updated in the ER at well. Patient's childcare center director told to use antibiotic on the patient's wound until it is completely healed. Patient's caregiver told to have the sutures removed in 5-7 days. - Vital Signs Vital signs: Temp Pulse Resp BP Pulse Ox 98 F 89 17 129/92 H 98 10/10/19 20:39 10/10/19 20:39 10/10/19 21:00 10/10/19 21:00 10/10/19 20:39 - Diagnostic Test Radiology reviewed: Image reviewed, Reports reviewed Procedures - Laceration/Wound Repair Forehead Wound length (cm): 5.5 Wound's Depth, Shape: Into muscle, Irregular Laceration pre-procedure: Sterile drapes applied, Shur-Clens applied Anesthetic type: 1% Lidocaine w/epi Volume Anesthetic (mLs): 8 Wound explored: Clean Irrigated w/ Saline (mLs): 250 Wound Repaired With: Sutures Suture Size/Type: 5:0, Prolene Number of Sutures: 10 Layer Closure?: Yes Deep Layer Suture Size/Type: 5:0, Other Number Deep Layer Sutures: 2 Complications: No Discharge - Discharge Clinical Impression: Seizure Forehead laceration Qualifiers: Encounter type: initial encounter Qualified Code(s): S01.81XA - Laceration without foreign body of other part of head, initial encounter Condition: Stable Disposition: HOME, SELF-CARE Instructions: Antibiotic Ointment Protection ([facility]), Laceration Care ([facility]), Seizure, Known Epileptic ([facility]), Tetanus Immunization Given ([facility]) Additional Instructions: Have your sutures removed in 5-7 days (can have this done at your primary care doctor, urgent care, or in an ER). Keep your wound covered in over the counter antibiotic ointment until the wound is completely healed. Change the forehead d ressing daily and apply antibiotic ointment daily unless you need to change the dressing more frequently due to bleeding. Continue to use antibiotic ointment on the wound even after the sutures are removed. Have your primary care doctor and Neurologist go over your CT findings with you to ensure no new findings since you have what looks like a mass in your head. Speak with your Neurologist about the frequency of your seizures as you may need some medication changes. Referrals: OMA BAUTISTA PA-C [Primary Care Provider] - Follow up as needed
[2019-10-10] MEDS ORDERED: DIPH/PERTUSS(ACELL)/TETANUS VAC/PF 0.5 ML SYR (>=10YO) IM ONE (21:19)
[2019-10-10] MEDS ORDERED: LIDOCAINE 1%/EPINEPHRINE INJ 20 ML VIAL INJ ONE (21:19)
--- NOTE | 2019-10-10 21:31 | RADIOLOGY REPORT (SQ) ---
EXAM DESCRIPTION: CT HEAD WITHOUT IV CONTRAST COMPLETED DATE/TME: 10/10/2019 20:48 CLINICAL HISTORY: 44 years, Male, eval for head trauma COMPARISON: None. TECHNIQUE: Images stored on PACS. All CT scanners at this facility use dose modulation, iterative reconstruction, and/or weight based dosing when appropriate to reduce radiation dose to as low as reasonably achievable (ALARA). [facility]: Dose Right [facility]: CareDose [facility]: Dose Right [facility]: Teradose 4D [facility]: Hyperoptic EXAM DESCRIPTION: CLINICAL HISTORY: eval for head trauma COMPARISON: None Available TECHNIQUE: Contiguous axial CT images of the head were obtained. Coronal and sagittal reconstructions were created from the axial data. This exam was performed according to our departmental dose-optimization program, which includes automated exposure control, adjustment of the mA and/or kV according to patient size and/or use of iterative reconstruction technique. FINDINGS: There is a mass extending into the left lateral ventricle measuring approximately 19 mm craniocaudal by 12 mm transverse. It is either partially calcified, or there are adjacent calcifications. The mass is not well-defined inferiorly on noncontrast CT.. There are also calcifications at the inferior aspect of the right lateral ventricle. Calcifications are also seen at the lateral aspects of the posterior fossa. The extra-axial CSF spaces are diffusely mildly effaced and there is mild to moderate enlargement of lateral ventricles. The third ventricle is normal in size. The fourth ventricle is moderately enlarged. The basal cisterns are not significantly effaced. Extra-axial CSF in the inferior aspect of the posterior fossa is not significantly effaced, and is generous in volume. There is nonspecific heterogeneous attenuation of the calvarium. . There is no other evidence of acute mass, mass effect, midline shift or hemorrhage. The ventricles and extra-axial CSF spaces are otherwise unremarkable. No acute abnormalities of the bones is seen. IMPRESSION: Findings are worrisome for a mass extending into the right lateral ventricle with associated obstruction of the foramina of [place]. MR would provide greater detail if desired, to include IV contrast, if this has not previously been evaluated. No evidence of acute traumatic injury.
[2019-10-10 22:07] VITALS: BP 134/97
== END 2019-10-10 22:07 | disposition home or self-care (01) ==
LOC: ER 19:07
DX: S01.81XA Laceration without foreign body of other part of head, initial encounter (principal); R56.9 Unspecified convulsions; W22.09XA Striking against other stationary object, initial encounter; F84.0 Autistic disorder; R62.50 Unspecified lack of expected normal physiological development in childhood; I10 Essential (primary) hypertension; Z93.1 Gastrostomy status; Z23 Encounter for immunization
CPT/HCPCS: 99283; 90471; 70450; 90715; 12014; J3490

== ENCOUNTER → 2019-10-10 | Outpatient (CLI) | payer MEDICAID ==
[2019-10-10 10:32] LABS: ABSOLUTE EOSINOPHILS # (AUTO) 0.1 10^3/uL (0.0-0.6); ABSOLUTE LYMPHOCYTES (AUTO) 1.3 10^3/uL (0.5-4.7); ABSOLUTE MONOCYTES (AUTO) 0.4 10^3/uL (0.1-1.4); ABSOLUTE NEUT (AUTO) 2.3 10^3/uL (1.7-8.2); BASOPHILS % (AUTO) 0.6 % (0-2); EOSINOPHILS % (AUTO) 1.5 % (0-6); HEMATOCRIT 36.7 % (37.9-51.0); HEMOGLOBIN 12.5 g/dL (13.5-17.0); LYMPHOCYTES % (AUTO) 33.1 % (13-45); MEAN CORPUSCULAR HEMOGLOBIN 28.8 pg (27.0-33.4); MEAN CORPUSCULAR HGB CONC 34.1 g/dL (32.0-36.0); MEAN CORPUSCULAR VOLUME 85 fl (80-97); MONOCYTES % (AUTO) 9.1 % (3-13); PLATELET COUNT 226 10^3/uL (150-450); RED BLOOD COUNT 4.34 10^6/uL (4.35-5.55); RED CELL DISTRIBUTION WIDTH 14.5 % (11.5-14.0); SEGMENTED NEUTROPHILS % (AUTO) 55.7 % (42-78); TOTAL CELLS COUNTED % (AUTO) 100 %; WHITE BLOOD COUNT 4.1 10^3/uL (4.0-10.5)
[2019-10-10 10:35] LABS: APPEARANCE,URINE CLEAR; BILIRUBIN,URINE NEGATIVE (NEGATIVE); GLUCOSE, URINE NEGATIVE (NEGATIVE); KETONES,URINE NEGATIVE (NEGATIVE); LEUKOCYTE ESTERASE,URINE NEGATIVE (NEGATIVE); NITRITE,URINE NEGATIVE (NEGATIVE); PROTEIN,URINE 30 mg/dL (NEGATIVE); URINE SPECIFIC GRAVITY 1.026; UROBILINOGEN,URINE NEGATIVE mg/dL (<2.0)
[2019-10-10 10:36] LABS: COLOR,URINE YELLOW
[2019-10-10 10:47] LABS: ANION GAP 5 (5-19); BLOOD UREA NITROGEN 16 mg/dL (7-20); CALCIUM 9.2 mg/dL (8.4-10.2); CARBON DIOXIDE 26 mmol/L (22-30); CHLORIDE 109 mmol/L (98-107); GLUCOSE 94 mg/dL (75-110); POTASSIUM 4.6 mmol/L (3.6-5.0)
[2019-10-10 10:57] LABS: UR PRO/CREAT RATIO RESULT 0.1 mg/mg (0.0-0.2); URINE CREATININE 263.4 mg/dL (22-328)
== END ==
LOC: OD 09:56
PROVIDERS: ATTEND Physician Assistant Medical
DX: N17.9 Acute kidney failure, unspecified (principal)
CPT/HCPCS: 36415; 80048; 81001; 82570; 83970; 84100; 84156; 85025

== ENCOUNTER 2019-10-27 20:42 | Emergency (ER) | payer MEDICAID ==
--- NOTE | 2019-10-27 21:51 | ER Document Report ---
ED Medical Screen (RME) - General Chief Complaint: Displaced G-tube Stated Complaint: G-TUBE WAS REMOVED Time Seen by Provider: 10/27/19 21:43 Primary Care Provider: OMA BAUTISTA PA-C [Primary Care Provider] - Follow up as needed TRAVEL OUTSIDE OF THE [place] IN LAST 30 DAYS: No - HPI Notes: 10/27/19 21:48 44-year-old male seizures, autism, developmental delay from a intermediate p resents to the emergency room due to pulling out his 20 Japanese PEG tube at 745 this evening after he was given his evening medication. The nurse that is with him states that he does rip out his G-tube quite often. Denies any fevers or chills. Patient does need his G-tube replaced. Denies any abdominal pain, nausea, vomiting. No rashes. I have greeted and performed a rapid initial assessment of this patient. A comprehensive ED assessment and evaluation of the patient, analysis of test results and completion of the medical decision making process will be conducted by additional ED providers. PHYSICAL EXAMINATION CV: s1, s2 regular LUNGS: No respiratory distress - Related Data Allergies/Adverse Reactions: No Known Allergies Allergy (Verified 09/09/19 09:24) Past Medical History - Past Medical History Cardiac Medical History: Reports: Hx Hypertension Denies: Hx Coronary Artery Disease, Hx Heart Attack Pulmonary Medical History: Denies: Hx Asthma, Hx Bronchitis, Hx COPD, Hx Pneumonia Neurological Medical History: Reports: Hx Seizures - SEIZURES AT LEAST TWICE WEEKLY. Denies: Hx Cerebrovascular Accident Renal/ Medical History: Denies: Hx Peritoneal Dialysis GI Medical History: Reports: Hx Endoscopy - g tube. Denies: Hx Ulcer Musculoskeltal Medical History: Denies Hx Arthritis Past Surgical History: Reports: Hx Abdominal Surgery - g-tube placement. Denies: Hx Open Heart Surgery, Hx Pacemaker - Immunizations Immunizations up to date: Yes Hx Diphtheria, Pertussis, Tetanus Vaccination: Yes Physical Exam - Vital signs Vitals: Temp Pulse Resp BP Pulse Ox 97.5 F 85 15 125/90 H 100 10/27/19 21:46 10/27/19 21:46 10/27/19 21:46 10/27/19 21:46 10/27/19 21:46 Course - Vital Signs Vital signs: Temp Pulse Resp BP Pulse Ox 97.5 F 85 15 125/90 H 100 10/27/19 21:46 10/27/19 21:46 10/27/19 21:46 10/27/19 21:46 10/27/19 21:46 Doctor's Discharge - Discharge Referrals: OMA BAUTISTA PA-C [Primary Care Provider] - Follow up as needed
--- NOTE | 2019-10-28 01:22 | RADIOLOGY REPORT (SQ) ---
CLINICAL HISTORY: g tube verification with gastrograffin COMPARISON: None. TECHNIQUE: XR ABDOMEN 1 VIEW (KUB) 10/28/2019 12:14 AM CDT FINDINGS: There is large amount stool throughout the colon. There are no abnormal radiopaque foreign bodies or abnormal calcifications. Osseous structures are grossly unremarkable. Distal gastrostomy is present. Contrast injected through the gastrostomy appears intraluminal. There is a catheter within the right lateral chest wall and extending into the abdomen. This is unchanged. There are extensive surgical clips in the right upper quadrant. IMPRESSION: Intraluminal position of gastrostomy.
--- NOTE | 2019-10-28 01:34 | ER Document Report ---
Entered by PIERRE GUILLEN SCRIBE 10/28/19 0013 Acting as scribe for:NEGRO HASSAN IV, MD ED General - General Chief Complaint: Displaced G-tube Stated Complaint: G-TUBE WAS REMOVED Time Seen by Provider: 10/27/19 21:43 Primary Care Provider: OMA BATUISTA PA-C [Primary Care Provider] - Follow up as needed Mode of Arrival: Wheelchair Notes: This 44 year old male patient with a history of seizures, autism and developmental delay presents to the ED today accompanied by his nurse with complaints of a displaced G-tube that occurred prior to arrival. Patient's nurse reports that the patient pulled out his 20 Stateless G-tube around 1945 this evening after taking his medications. The nurse states that the patient frequently pulls the tube out. Denies any abdominal pain, nausea, vomiting, fever, chills, or rash. TRAVEL OUTSIDE OF THE [place] IN LAST 30 DAYS: No - Related Data Allergies/Adverse Reactions: No Known Allergies Allergy (Verified 09/09/19 09:24) Past Medical History - General Information source: [facility] - Social History Smoking Status: Never Smoker Cigarette use (# per day): No Chew tobacco use (# tins/day): No Smoking Education Provided: No Family History: Reviewed & Not Pertinent Patient has suicidal ideation: No Patient has homicidal ideation: No - Past Medical History Cardiac Medical History: Reports: Hx Hypertension Neurological Medical History: Reports: Hx Seizures - SEIZURES AT LEAST TWICE WEEKLY GI Medical History: Reports: Hx Endoscopy - g tube Past Surgical History: Reports: Hx Abdominal Surgery - g-tube placement - Immunizations Immunizations up to date: Yes Hx Diphtheria, Pertussis, Tetanus Vaccination: Yes Review of Systems - Review of Systems Constitutional: See HPI. denies: Chills, Fever EENT: No symptoms reported Gastrointestinal: See HPI, Other - Displaced G-tube. denies: Abdominal pain, Nausea, Vomiting Genitourinary: No symptoms reported Male Genitourinary: No symptoms reported Musculoskeletal: No symptoms reported Skin: No symptoms reported Hematologic/Lymphatic: No symptoms reported Neurological/Psychological: No symptoms reported -: Yes All other systems reviewed and negative Physical Exam - Vital signs Vitals: Temp Pulse Resp BP Pulse Ox 97.5 F 85 15 125/90 H 100 10/27/19 21:46 10/27/19 21:46 10/27/19 21:46 10/27/19 21:46 10/27/19 21:46 - General General appearance: Alert, Other - Chronically bedridden In distress: None - HEENT Head: Normocephalic, Atraumatic Eyes: Normal Pupils: PERRL - Respiratory Respiratory status: No respiratory distress Chest status: Nontender Breath sounds: Normal Chest palpation: Normal - Cardiovascular Rhythm: Regular Heart sounds: Normal auscultation Murmur: No Friction rub: No Gallop: None auscultated - Abdominal Inspection: Other - Erythema noted around G-tube site Distension: No distension Bowel sounds: Normal Tenderness: Nontender - Abdomen soft Organomegaly: No organomegaly - Back Back: Normal, Nontender - Extremities General upper extremity: Normal inspection General lower extremity: Normal inspection - Neurological Neuro grossly intact: Yes - Psychological Associated symptoms: Normal affect, Normal mood - Skin Skin Temperature: Warm Skin Moisture: Dry Skin Color: Normal Course - Vital Signs Vital signs: Temp Pulse Resp BP Pulse Ox 98.7 F 96 14 124/60 98 10/28/19 02:18 10/28/19 02:18 10/28/19 02:18 10/28/19 02:18 10/28/19 02:18 - Diagnostic Test Radiology reviewed: Reports reviewed Procedures - Additional Procedures Gastric tube replacement Time performed: 00:11 - pt pulled out his g tube Additional Procedures: Gastric tube replacement Notes: 10/28/19 01:29 20 Stateless G-tube was placed and an ostomy. Tube passed through the ostomy easily and without resistance. Balloon was filled with 6 mL's of air. Tube was retracted to ensure that balloon was inflated and to would not dislodge because of a deflated balloon. After this tube was reinserted and KUB with Gastrografin was ordered to verify placement. Radiology read confirms intraluminal gastrostomy tube placement. Patient tolerated procedure well. Discharge - Discharge Clinical Impression: Dislodged gastrostomy tube Condition: Stable Disposition: HOME, SELF-CARE Additional Instructions: Return to the Emergency Department without delay if any worse. Negro's gastrostomy tube has been replaced and appears to be in good position. Seek immediate medical care if you run into problems with use of the replace G- tube. HOME CARE INSTRUCTIONS & INFORMATION: Thank you for choosing us for your medical needs. We hope you're satisfied with the care you received. After you leave, you must properly care for your problem and, at the same time, observe its progress. Any condition can change. Some illnesses can change rapidly over hours or days. If your condition worsens, return to the Emergency Department or see your physician promptly. ABOUT YOUR X-RAYS AND EKG'S: If you had an EKG or X-rays taken, they have been read by the Emergency Physician. The X-rays and EKG's will also be read by a Radiologist or Cash Register Repairer within 24 hours. If discrepancies are noted, you will be notified by telephone. Please be certain the ED has a correct telephone number & address where you can be reached. Also, realize that some fractures or abnormalities do not show up on initial X-rays. If your symptoms continue, see your physician. ABOUT YOUR LABORATORY TEST: If you had laboratory tests, the results have been reviewed by the Emergency Physician. Some test results (for example cultures) may not be available for several days. You will be contacted if any test result shows you need additional treatment. Please be certain the ED has a correct telephone number and address where you can be reached. ABOUT YOUR MEDICATIONS: You will receive instructions on how to take your medicine on the prescription label you receive. Additional information may be provided by the Pharmacy. If you have questions afterwards, call the ED for clarification or further instructions. Some prescribed medications may cause drowsiness. Do not perform tasks such as driving a car or operating machinery without consulting your Pharmacist. If you feel you need a refill of pain medication, your condition will need re-evaluation. Please do not call for a refill of any medication. ABOUT YOUR SIGNATURE: Signature of this document acknowledges to followin. Understanding that you received emergency treatment and that you may be released before al medical problems are known or treated. Please be certain the ED has a correct phone number & address where you can be reached. 2. Acknowledgement that you will arrange for follow-up care as recommended. 3. Authorization for the Emergency Physician to provide information to your follow-up Physician in order to maximize your care. AT ANY TIME, IF YOUR SYMPTOMS CHANGE SIGNIFICANTLY OR WORSEN OR YOU DEVELOP NEW SYMPTOMS, RETURN TO THE EMERGENCY DEPARTMENT IMMEDIATELY FOR RE-EVALUATION. OUR GOAL IS TO PROVIDE EXCELLENT MEDICAL CARE! WE HOPE THAT WE HAVE MET YOUR EXPECTATIONS DURING YOUR EMERGENCY DEPARTMENT VISIT AND THAT YOU FEEL YOU HAVE RECEIVED EXCELLENT CARE! Referrals: OMA BAUTISTA PA-C [Primary Care Provider] - Follow up as needed I personally performed the services described in the documentation, reviewed and edited the documentation which was dictated to the scribe in my presence, and it accurately records my words and actions.
[2019-10-28 02:20] VITALS: BP 124/60
== END 2019-10-28 02:20 | disposition home or self-care (01) ==
LOC: ER 20:42
DX: K94.29 Other complications of gastrostomy (principal); R56.9 Unspecified convulsions; F84.0 Autistic disorder; R62.50 Unspecified lack of expected normal physiological development in childhood; I10 Essential (primary) hypertension
CPT/HCPCS: 74018; 99283

== ENCOUNTER 2019-10-28 13:07 | Emergency (ER) | payer MEDICAID ==
[2019-10-28 13:32] VITALS: BP 121/85
--- NOTE | 2019-10-28 13:49 | ER Document Report ---
ED Medical Screen (RME) - General Chief Complaint: Problem with Feeding Tube Stated Complaint: FEEDING TUBE FELL OUT Time Seen by Provider: 10/28/19 13:40 Primary Care Provider: OMA BAUTISTA PA-C [Primary Care Provider] - Follow up as needed Notes: Patient is a 44-year-old male who presents emergency department with a chief complaint of his feeding tube coming out. Biodiesel Engine Specialist at bedside and states that the patient stood up and the gastric tube fell out on its own. Patient was here yesterday and had his G-tube replaced at that time. Biodiesel Engine Specialist denies any feeding difficulties. Exam: Gastrostomy site patent. I have greeted and performed a rapid initial assessment of this patient. A comprehensive ED assessment and evaluation of the patient, analysis of test results and completion of medical decision making process will be conducted by an additional ED providers. TRAVEL OUTSIDE OF THE [place] IN LAST 30 DAYS: No - Related Data Allergies/Adverse Reactions: No Known Allergies Allergy (Verified 10/28/19 13:36) Past Medical History - Social History Chew tobacco use (# tins/day): No Frequency of alcohol use: None Drug Abuse: None - Past Medical History Cardiac Medical History: Reports: Hx Hypertension Denies: Hx Coronary Artery Disease, Hx Heart Attack Pulmonary Medical History: Denies: Hx Asthma, Hx Bronchitis, Hx COPD, Hx Pneumonia Neurological Medical History: Reports: Hx Seizures - SEIZURES AT LEAST TWICE WEEKLY. Denies: Hx Cerebrovascular Accident Renal/ Medical History: Denies: Hx Peritoneal Dialysis GI Medical History: Reports: Hx Endoscopy - g tube. Denies: Hx Ulcer Musculoskeltal Medical History: Denies Hx Arthritis Past Surgical History: Reports: Hx Abdominal Surgery - g-tube placement. Denies: Hx Open Heart Surgery, Hx Pacemaker - Immunizations Immunizations up to date: Yes Hx Diphtheria, Pertussis, Tetanus Vaccination: Yes Physical Exam - Vital signs Vitals: Temp Pulse Resp BP Pulse Ox 97.6 F 94 20 121/85 98 10/28/19 13:30 10/28/19 13:30 10/28/19 13:30 10/28/19 13:10/28/19 13:30 Course - Vital Signs Vital signs: Temp Pulse Resp BP Pulse Ox 97.6 F 94 20 121/85 98 10/28/19 13:30 10/28/19 13:30 10/28/19 13:30 10/28/19 13:30 10/28/19 13:30 Doctor's Discharge - Discharge Referrals: OMA BAUTISTA PA-C [Primary Care Provider] - Follow up as needed
--- NOTE | 2019-10-28 16:01 | RADIOLOGY REPORT (SQ) ---
EXAM DESCRIPTION: KUB/ABDOMEN (SINGLE VIEW) IMAGES COMPLETED DATE/TIME: 10/28/2019 3:28 pm REASON FOR STUDY: g-tube replacement; please add Gastrografin COMPARISON: KUB 10/28/2019 at 01:04 hours NUMBER OF VIEWS: One view. TECHNIQUE: Supine radiographic image of the abdomen acquired after administration of 30 mL Gastrogr afin through the gastrostomy tube on 10/28/2019 at 15:28 hours. LIMITATIONS: None. FINDINGS: BOWEL GAS PATTERN: Patent gastrostomy tube with oral contrast at the stomach. Moderate am ount of stool noted within the redundant colon. CALCIFICATIONS: No suspicious calcifications. HARDWARE: Multiple surgical clips at the right upper quadrant. BONES: Degenerative changes at the spine. IMPRESSION: Patent gastrostomy tube with oral contrast at the stomach. Moderate amount of stool wit hin the redundant colon. TECHNICAL DOCUMENTATION: JOB ID: [id number] [employer]- All Rights Reserved Reading location - IP/workstation name: [email or web address]
--- NOTE | 2019-10-28 16:17 | ER Document Report ---
ED GI/ - General Chief Complaint: Problem with Feeding Tube Stated Complaint: FEEDING TUBE FELL OUT Time Seen by Provider: 10/28/19 13:40 Primary Care Provider: OMA BAUTISTA PA-C [Primary Care Provider] - Follow up as needed DEANDRA JAMIL MD [ACTIVE STAFF] - Follow up in 3-5 days Notes: Patient is a 44-year-old male who presents to the emergency department with a chief complaint of a deep placed gastric tube that occurred this morning. Patient was seen here in the emergency department last night and had it replaced, but it fell out this morning. Yesterday the patient ended up accidentally pulling out his gastric tube. Dr. Enciso is his glue mill operator. Past medical history includes seizures, developmental delay, and autism. Patient's nurse is at bedside and provided history. TRAVEL OUTSIDE OF THE [place] IN LAST 30 DAYS: No - Related Data Allergies/Adverse Reactions: No Known Allergies Allergy (Verified 10/28/19 13:36) Past Medical History - Social History Smoking Status: Never Smoker Chew tobacco use (# tins/day): No Frequency of alcohol use: None Drug Abuse: None Family History: Reviewed & Not Pertinent - Past Medical History Cardiac Medical History: Reports: Hx Hypertension Denies: Hx Coronary Artery Disease, Hx Heart Attack Pulmonary Medical History: Denies: Hx Asthma, Hx Bronchitis, Hx COPD, Hx Pneumonia Neurological Medical History: Reports: Hx Seizures - SEIZURES AT LEAST TWICE WEEKLY. Denies: Hx Cerebrovascular Accident Renal/ Medical History: Denies: Hx Peritoneal Dialysis GI Medical History: Reports: Hx Endoscopy - g tube. Denies: Hx Ulcer Musculoskeletal Medical History: Denies Hx Arthritis Past Surgical History: Reports: Hx Abdominal Surgery - g-tube placement. Denies: Hx Open Heart Surgery, Hx Pacemaker - Immunizations Immunizations up to date: Yes Hx Diphtheria, Pertussis, Tetanus Vaccination: Yes Review of Systems - Review of Systems -: Yes ROS unobtainable due to patient's medical condition Physical Exam - Vital signs Vitals: Temp Pulse Resp BP Pulse Ox 97.6 F 94 20 121/85 98 10/28/19 13:30 10/28/19 13:30 10/28/19 13:30 10/28/19 13:30 10/28/19 13:30 - Notes Notes: PHYSICAL EXAMINATION: GENERAL: Appears well, healthy, well-nourished, no acute distress. HEAD: Normocephalic, atraumatic. EYES: PERRL, conjunctiva normal, all extraocular movements intact, sclera nonicteric ENT: Moist mucous membranes. NECK: Supple, no noticeable swelling, redness, rash. Normal range of motion. LUNGS: Equal breath sounds bilaterally and clear to auscultation. No wheezes rales or rhonchi. CARDIOVASCULAR: S1-S2, regular rate, regular rhythm. Radial pulses 2+, normal. ABDOMEN: Normoactive bowel sounds. Soft, nontender, no guarding, no rebound tenderness, and no masses palpated. Gastrostomy site noted. Small amount of erythema noted. EXTREMITIES: Normal strength and range of motion, no pitting or edema. No cyanosis. NEUROLOGICAL: Moves all extremities upon command. Strength 5/5 in all extremities. PSYCH: Normal mood, normal affect. SKIN: Warm, dry. No rash, lesions, ulcerations noted. Normal skin turgor. Course - Re-evaluation Re-evalutation: 10/28/19 Patient's gastrostomy tube was replaced by myself. Gastrografin was ordered with a KUB. KUB showed that the gastrostomy tube was in the stomach. Advised the nurse to make sure that the patient has a follow-up appointment with Dr. Jamil to evaluate his gastrostomy tube. She is in agreement with this plan. Follow-up precautions were given. Verbal discharge instructions were given to the patient's nurse. They verbalized understanding. They are stable for discharge. - Vital Signs Vital signs: Temp Pulse Resp BP Pulse Ox 97.6 F 94 20 121/85 98 10/28/19 13:30 10/28/19 13:30 10/28/19 13:30 10/28/19 13:30 10/28/19 13:30 Discharge - Discharge Clinical Impression: Dislodged gastrostomy tube Condition: Stable Disposition: HOME, SELF-CARE Additional Instructions: You were seen today in the emergency department for your gastrostomy tube that came out. It was replaced here in the emergency department. Please follow-up with gastroenterology in regards to this visit. Have them evaluate this tube and possibly replace it. Referrals: OMA BAUTISTA PA-C [Primary Care Provider] - Follow up as needed DEANDRA JAMIL MD [ACTIVE STAFF] - Follow up in 3-5 days
== END 2019-10-28 16:30 | disposition home or self-care (01) ==
LOC: ER 13:07
DX: K94.23 Gastrostomy malfunction (principal); G40.909 Epilepsy, unspecified, not intractable, without status epilepticus; I10 Essential (primary) hypertension; R62.50 Unspecified lack of expected normal physiological development in childhood; F84.0 Autistic disorder
CPT/HCPCS: 74018; 99283